=== PATIENT | female | born 1950 | race Caucasian/White ===

== ENCOUNTER 2019-05-10 16:42 | Inpatient (IN) | payer MEDICARE, SELFPAY ==
[2019-05-10] VITALS (14 sets, daily range): BP systolic 110–172; BP diastolic 86–140; PULSE 85–188; RESP 20–34; TEMP 36.6–37; O2SAT 88–100; BMI 42.0; BMI 41.7
--- NOTE | 2019-05-10 17:05 | EKG12_ITS ---
Test Reason : SOB Blood Pressure : / mmHG Vent. Rate : 197 BPM Atrial Rate : 174 BPM P-R Int : 000 ms QRS Dur : 088 ms QT Int : 236 ms P-R-T Axes : 000 028 153 degrees QTc Int : 427 ms Atrial fibrillation with rapid ventricular response Nonspecific ST and T wave abnormality Abnormal ECG Confirmed by CARI MCKEE, BILLY ([id number]), editorial assistant KRAIG MATTHEW ([id number]) on 05/12/2019 8:59:03 AM Referred By: EMILIANA Confirmed By:BILLY ALCALA MD
--- NOTE | 2019-05-10 17:17 | ED.VISSUMM ---
- ER Visit Summary Date of Service: 05/10/19 Chief Complaint: Shortness of breath History of Present Illness: The patient is a 68 F who presents with shortness of breath that has been getting worse over the past 3 weeks. Patient states she ran out of her medications at home approximately 3 weeks ago and has not seen her primary care physician to get these refilled. Patient does admit to some lower leg swelling that has been getting worse. Patient admits to a cough with some white sputum. Patient states her breathing is worse with exertion. Patient denies any fevers or chills. Patient denies any chest pain. Patient does admit to occasional palpitation. Physical Examination: Vital signs are stable except for mild tachypnea of 24. Patient is afebrile. Patient is in no acute distress. Oral mucosa is pink and moist. Neck is supple. Trachea is midline. There is no JVD noted. Heart was regular rate and rhythm. Lungs are clear and equal bilaterally. Abdomen is soft. Bowel sounds are normal. There is no tenderness. Extremities are intact. There is trace edema of the lower extremities bilaterally. Cranial nerves II through XII are intact. There are no focal motor or sensory deficits noted. Test Results: EKG shows atrial fibrillation with a rate of 197. There are no acute ST or T wave changes noted. CBC was normal. Basic metabolic profile shows slightly increased creatinine of 1.21. Troponin was 0.024. BNP with slightly elevated at 851. PA and lateral chest x-ray shows a left pleural effusion. Emergency Department Course and Treatment: Patient was given a dose of Cardizem here. Patient's heart rate improved into the 140s. Patient was still in atrial fibrillation. Patient was given a dose of labetalol here. Patient's heart rate improved into the 110s. Patient was still in atrial fibrillation. Patient's results were discussed with her. Case was discussed with the hospitalist. Patient will be admitted. Disposition: Admit to hospital Impression: 1. Atrial fibrillation with rapid ventricular response. 2 left pleural effusion This note was generated with [employer] dictation software. It may contain incorrect words, spelling, and punctuation that were not noted in review of the chart prior to signing ED Disposition - Plan for ED Patient: Disposition: Acute Care Hospital [facility] Diagnosis: Atrial fibrillation with rapid ventricular response, Pleural effusion, left Referrals: Mali Astudillo NP-Giuliano [Primary Care Provider] -
--- NOTE | 2019-05-10 17:30 | RAD_ITS ---
STUDY: X-RAY CHEST REASON FOR EXAM: Female, 68 years old. Shortness of breath and cough TECHNIQUE: PA and lateral views of the chest. COMPARISON: 02/02/2016 FINDINGS: EKG leads overlie the chest Lungs are expanded. Chronic interstitial changes noted in both lung mccollum. Right lung is clear. There is a large left pleural effusion with likely associated atelectasis or infiltrate. Normal size heart. Normal mediastinum and ebony. Normal visualized pulmonary arteries. There is atherosclerotic calcification of the aortic arch with tortuosity. There are diffuse degenerative changes of the visualized thoracic spine. There is degenerative osteoarthritis of the bilateral shoulders. There is no demonstrated abnormality of the visualized soft tissue structures of the upper abdomen. RAD/Chest PA and Lateral IMPRESSION: Large left pleural effusion with likely associated atelectasis, follow-up recommended to ensure resolution Electronically Signed: Boston Yu MD at 17:54 EDT , Service support ,
[2019-05-10 17:39] LABS: Absolute Lymphocyte Count 1.15 X10^3/uL (0.83-4.51); Absolute Neutrophil Count 8.7 X10^3/uL (2.0-7.7); Basophil# 0.09 X10^3/uL; Basophil% 0.8 % (0-1); Eosinophil# 0.04 X10^3/uL; Eosinophils% 0.4 % (0-5); Hemoglobin 14.4 g/dL (12.0-15.0); Lymphocyte # 1.15 X10^3/ul (4.0); Lymphocyte % 10.5 % (19-41); Mean Corp Hgb Conc 32.7 g/dL (32-36); Mean Corpuscular Hgb 28.5 pg (27.0-32.0); Mean Corpuscular Volume 87.1 fL (81-99); Mean Platelet Vol. 10.7 fl (6.2-12.0); Monocyte# 0.91 X10^3/uL; Monocyte% 8.3 % (0-10); NRBC Flagged by Analyzer 0 % (0-5); Neutrophil # 8.69 X10^3/uL (2.7-7.7); Neutrophil % 79.5 % (47-70); Platelet Count 267 K/mm3 (150-450); RBC Distribution Width CV 14.1 % (11.6-14.6); RBC Distribution Width SD 45.1 fl (35.1-43.9); Red Blood Count 5.05 M/mm3 (4.2-5.4); White Blood Count 10.9 K/mm3 (4.4-11.0)
[2019-05-10] MEDS: dilTIAZem 25 MG/5 ML Vial IV BOLUS (17:41)
[2019-05-10 17:59] LABS: Anion Gap 13 (5-15); BUN 16 mg/dL (7-18); BUN/Creat Ratio 13.2 RATIO (10-20); Calcium,Total 9.2 mg/dL (8.5-10.1); Chloride 105 mmol/L (98-107); Creatinine, Serum 1.21 mg/dL (0.55-1.02); EST Glomerular Filtration Rate 47 mL/min (>60); Est Glom Filt Rate - Afr Amer 57 mL/min (>60); Estimated Creatinine Clearance 37.32 ml/min; Glucose 139 mg/dL (74-106); Potassium 3.5 mmol/L (3.5-5.1); Sodium Level 141 mmol/L (136-145)
--- NOTE | 2019-05-10 20:11 | PCM.HP.STD ---
Problem List (1) Acute on chronic diastolic (congestive) heart failure Status: Acute (2) Atrial fibrillation with rapid ventricular response Status: Acute (3) Pleural effusion, left Status: Acute (4) Severe uncontrolled hypertension Status: Chronic (5) Obesity Status: Chronic Qualifiers: Obesity type: unspecified obesity type Serious obesity comorbidity presence: with serious comorbidity Body mass index: BMI 40.0-44.9 History of Present Illness Date of Admission: 05/10/19 Chief Complaint: Palpitation, shortness of breath - 3 weeks The patient is a 68 year old F past medical history of chronic diastolic CHF, hypertension who comes in with complaints of palpitations, shortness of breath ongoing for 3 weeks. Patient ran out of her medications 3 weeks ago and because she was feeling well she did not bother to go refill them. Denied any chest pain or dizziness. She admits to orthopnea, sleep sitting in a chair. Denies any PND, admits to bilateral leg swelling. Vitals signs in the ED show temperature of 97.8F, heart rate of 188, blood pressure 153/128, respiratory 28, SPO2 was 88% on room air. Admitting blood work showed WBC count of 10.9, hemoglobin 14.4, platelet count of 267, BMP was unremarkable, creatinine was at her baseline, BNPep was 851. Admitting chest x-ray showed large left pleural effusion with associated atelectasis. Past Medical History Past Medical History (Chronic Problems): Chronic Problems Obesity (Chronic) Severe uncontrolled hypertension (Chronic) Allergies Sulfa (Sulfonamide Antibiotics) Allergy (Verified 05/10/19 16:43) Unknown Home Medications: Ambulatory Orders Medication Instructions Recorded Aspirin [Aspirin, Baby] 81 mg PO DAILY@0800 #1 tab.chew 02/02/16 amlodipine 10 mg tablet 10 mg PO DAILY #30 tab 01/30/18 carvedilol 25 mg tablet 25 mg PO BID #60 tab 02/16/18 furosemide 40 mg tablet 40 mg PO DAILY #30 tab 02/16/18 pravastatin 20 mg tablet 20 mg PO QHS #30 tab 02/16/18 Valsartan 320 mg PO DAILY 05/10/19 Surgical History: no surgical history Psychiatric History: No pertinent psych hx [employer] History: No pertinent [employer] history Lives: Spouse/ Significant Other Smoking Status: Never smoker Tobacco Use: Non-smoker Alcohol: None Drugs: None - *Family History Maternal History Items: Cancer - gynecological Paternal History Items: Heart Disease Review of Systems Constitutional: Reports: Fatigue. Denies: Anorexia, Chills, Fever, Night Sweats, Malaise, Weakness, Weight Change Eyes: Denies: Blurred vision, Cataracts, Conjunctivae Inflammation, Pain, Redness, Vision Change HEENT: Denies: Difficulty Hearing, Difficulty Swallowing, Hard of Hearing, Head Aches, Hearing Changes, Nasal bleeding, Sinus Congestion, Sinus Drainage Cardiovascular: Reports: Edema, Orthopnea, Paroxysmal Noc. Dyspnea. Denies: Chest Pain, Claudication, Chest Pressure, Chest Tightness, Light Headedness, Palpitations, Syncope Respiratory: Reports: Shortness of Breath, Shortness of breath at rest, Shortness of breath upon exertion. Denies: Cough, Hemoptysis, Pleuritic Pain, Sputum production, Wheezing Gastrointestinal: Denies: Abdominal Pain, Constipation, Diarrhea, Hematemesis, Hematochezia, Nausea, Vomiting Genitourinary: Denies: Dysuria, Frequency, Incontinence, Nocturia Gynecological: Denies: Breast symptoms, Excessively long or heavy periods, Vaginal discharge Musculoskeletal: Denies: Joint Pain, Joint stiffness, Joint swelling, Joint Tenderness Skin: Denies: Pruritis, Rash, Wounds Neurological: Denies: Difficulty swallowing, Focal weakness, Numbness, Tingling Psychiatric: Denies: Anxiety, Depression, Homicidal Ideations, Suicidal Ideations Hematologic/ Lymphatic: Denies: Adenopathy, Anemia, Easy Bruising, Easy Bleeding VTE Information - Inpt Only VTE Present on Admission: No VTE Pharm Prophylaxis ordered?: Yes Patient Problems: Active and Suspected Problems Atrial fibrillation with rapid ventricular response (Acute) Pleural effusion, left (Acute) Acute on chronic diastolic (congestive) heart failure (Acute) - Physical Exam General: Alert, Oriented x3, Cooperative, No apparent distress, - - on 2 L oxygen HEENT: Atraumatic, PERRLA, EOMI, Normocephalic Oral: Dry Mucosa Neck: Supple Lungs: Clear to auscultation, Normal air movement Cardiovascular: Regular rate, Normal S1, Normal S2, Irregular Rate, Tachycardic Abdomen: Bowel Sounds Present, Soft, Non Tender, Non-Distended, No Hepato-splenomegaly, Obese Extremities: Edema - bilateral pedal edema +2 Skin: No rashes Musculoskeletal: No Tenderness to Palpation of Joints or Extremities Lymphatic: No Cervical, Supraclavicular, or Inguinal Adenopathy Neurological: Cranial nerves II-XII grossly intact, Neuro grossly intact Psych/Mental Status: Normal Affect, Appropriate Vital Signs Temp Pulse Resp BP Pulse Ox 97.8 F 117 H 23 H 131/97 H 95 05/10/19 16:43 05/10/19 19:16 05/10/19 19:16 05/10/19 19:16 05/10/19 19:16 Oxygen Flow Rate (L/min) 94 Oxygen Delivery Method Room Air Weight: 107.592 kg Body Mass Index (BMI) 42.0 Laboratory Tests Past 24 Hrs 05/10/19 05/10/19 05/10/19 17:20 17:20 17:20 WBC 10.9 RBC 5.05 Hgb 14.4 Hct 44.0 MCV 87.1 MCH 28.5 MCHC 32.7 RDW Std Deviation 45.1 H RDW Coeff of Renate 14.1 Plt Count 267 MPV 10.7 Immature Gran % (Auto) 0.500 Neut % (Auto) 79.5 H Lymph % (Auto) 10.5 L [place] % (Auto) 8.3 Eos % (Auto) 0.4 Baso % (Auto) 0.8 Absolute Neuts (auto) 8.7 H Absolute Lymphs (auto) 1.15 Nucleated RBC % 0 Sodium 141 Potassium 3.5 Chloride 105 Carbon Dioxide 23.0 Anion Gap 13 BUN 16 Creatinine 1.21 H Estim Creat Clear Calc 37.32 Est GFR (MDRD) Af Amer 57 L Est GFR (MDRD) Non-Af 47 L BUN/Creatinine Ratio 13.2 Glucose 139 H Calcium 9.2 Troponin I 0.024 B-Natriuretic Peptide 851.0 H Assessment/Plan All Active Problems Atrial fibrillation with rapid ventricular response (Acute) Pleural effusion, left (Acute) Acute on chronic diastolic (congestive) heart failure (Acute) Congestive heart failure with LV diastolic dysfunction, NYHA class 2 (Acute) Ventricular tachycardia (Acute) Shortness of breath (Acute) 68 year old F with past medical history of chronic diastolic CHF, hypertension who comes in with complaints of palpitations, shortness of breath ongoing for 3 weeks. 1. A. fib with RVR secondary to medication noncompliance, CHADS-VASC score 4 Patient was out of her medications 3 weeks ago Received Cardizem bolus in the ED Plan: Admit to PCU, monitor on telemetry, continue on Cardizem drip, therapeutic Lovenox, resume home carvedilol 2D echo, will check magnesium level 2. Uncontrolled hypertension secondary to medication noncompliance Will resume home medications, continue to monitor vitals 3. Acute on chronic diastolic CHF, last 2D echo in 2015 during cardiac cath showed EF of 40% We will start on IV Lasix, strict CHF protocol, repeat 2D echo 4. Acute respiratory insufficiency secondary to acute on chronic diastolic CHF/large left pleural effusion We will continue on IV Lasix, repeat chest x-ray in a.m., encourage use of incentive spirometer If pleural effusion continues to be persistent, consider diagnostic and therapeutic thoracocentesis 5. CKD stage III, creatinine appears to be at her baseline, will continue to follow whilst on diuretics 6. Morbid obesity, BMI 42, lifestyle modification recommended 7. DVT PPx- On therapeutic Lovenox Code Visit Inpatient E&M: 15885 Init Hosp L3
--- NOTE | 2019-05-10 21:32 | ECHOD_ITS ---
Reason For Study: Afib/Flutter Procedure This was a 2D Doppler, Color Flow transthoracic echocardiogram. The study was technically difficult. Exam performed portable in patient room. Left Ventricle Normal LV size. Severe segmental systolic dysfunction (see wall motion). The estimated ejection fraction is 15 %. Unable to assess diastolic dysfunction due to arrhythmia. Infero-Basal: Severely Hypokinetic. Basal inferoseptal: Severely Hypokinetic. Basal anteroseptal: Hypokinetic. Mid- Anterior : Severely Hypokinetic. Mid-Lateral : Severely Hypokinetic. Mid-Posterior: Severely Hypokinetic. Mid-Inferior: Severely Hypokinetic. Mid-inferoseptal : Akinetic. Mid-anteroseptal : Akinetic. Anterior [place] : Not visualized. Inferior [place] : Not visualized. Lateral [place] : Akinetic. Septal [place] : Akinetic. Right Ventricle Mildly dilated right ventricle. Mild global right ventricular systolic dysfunction. Atria The left atrium is severely enlarged. The right atrium is severely enlarged. No doppler evidence for ASD. Mitral Valve There is no mitral annular calcification. Mild papillary muscle dysfunction of the mitral valve. Mild (1+) mitral valve insufficiency. Tricuspid Valve Normal tricuspid valve. Moderate (2+) eccentric tricuspid valve insufficiency. Right ventricular systolic pressure estimated to be 35 mmHg. Aortic Valve Trisinus/trileaflet aortic valve. Normal aortic valve. Pulmonic Valve The pulmonic valve is not well visualized. Trivial pulmonic valve insufficiency. Great Vessels Normal sized aortic root. Pericardium/Pleural No pericardial effusion. Echo lucency compatible with a pleural effusion. MMode/2D Measurements & Calculations LVIDd: 5.0 cm IVSd: 1.5 cm LVOT diam: 2.0 cm LVIDs: 4.0 cm LVPWd: 1.1 cm LVOT area: 3.3 cm2 RVDd: 4.1 cm FS: 20.4 % Ao root diam: 3.8 cm LAV(MOD-sp4): 130.5 ml LA A4 area: 32.8 cm2 LA dimension: 5.2 cm RA A4 area: 23.6 cm2 Doppler Measurements & Calculations MV E max zainab: 104.4 cm/sec Ao V2 max: 125.6 cm/sec LV V1 max: 95.2 cm/sec Ao max P.4 mmHg LV V1 max P.8 mmHg TARIQ(V,D): 2.5 cm2 MR max zainab: 403.8 cm/sec PA V2 max: 90.5 cm/sec TR max zainab: 257.3 cm/sec MR max P.2 mmHg TR max P.5 mmHg MR mean zainab: 310.7 cm/sec MR mean P.5 mmHg MR VTI: 127.4 cm Interpretation Summary The study was technically difficult. Severe segmental systolic dysfunction (see wall motion). The estimated ejection fraction is 15 %. Mildly dilated right ventricle. Mild global right ventricular systolic dysfunction. The left atrium is severely enlarged. The right atrium is severely enlarged. Mild papillary muscle dysfunction of the mitral valve. Mild (1+) mitral valve insufficiency. Moderate (2+) eccentric tricuspid valve insufficiency. Trivial pulmonic valve insufficiency. Echo lucency compatible with a pleural effusion. Right ventricular systolic pressure estimated to be 35 mmHg. Unable to assess diastolic dysfunction due to arrhythmia. Ordering Physician: Elaine Sarmiento Referring Physician: Mali Astudillo Performed By: Boris Valerio RCS
[2019-05-10] MEDS: Furosemide 40 MG/4 ML Vial IV (22:51)
[2019-05-10] MEDS: Carvedilol 25 MG Tablet PO (22:51)
[2019-05-10] MEDS: Heparin Injection (Vial) 5,000 UNIT/ML VIAL 5000 UNIT SC (22:51)
[2019-05-10] MEDS: Pravastatin 20 MG Tablet PO (22:51)
[2019-05-10 23:11] LABS: Bedside Glucose 137 mg/dL (70-110)
[2019-05-11] VITALS (34 sets, daily range): BP systolic 83–158; BP diastolic 64–130; PULSE 70–103; RESP 16–24; TEMP 36.6–37.1; O2SAT 93–98
[2019-05-11] MEDS: Heparin Injection (Vial) 5,000 UNIT/ML VIAL 5000 UNIT SC ×3 (06:07→22:19)
[2019-05-11 06:15] LABS: Absolute Lymphocyte Count 1.42 X10^3/uL (0.83-4.51); Absolute Neutrophil Count 6.5 X10^3/uL (2.0-7.7); Basophil# 0.05 X10^3/uL; Basophil% 0.6 % (0-1); Eosinophil# 0.04 X10^3/uL; Eosinophils% 0.5 % (0-5); Hemoglobin 11.6 g/dL (12.0-15.0); Lymphocyte # 1.42 X10^3/ul (4.0); Mean Corp Hgb Conc 31.4 g/dL (32-36); Mean Corpuscular Hgb 27.2 pg (27.0-32.0); Mean Corpuscular Volume 86.9 fL (81-99); Mean Platelet Vol. 11.2 fl (6.2-12.0); Monocyte# 0.83 X10^3/uL; Monocyte% 9.4 % (0-10); NRBC Flagged by Analyzer 0 % (0-5); Neutrophil # 6.49 X10^3/uL (2.7-7.7); Platelet Count 180 K/mm3 (150-450); RBC Distribution Width CV 14.2 % (11.6-14.6); Red Blood Count 4.26 M/mm3 (4.2-5.4); White Blood Count 8.9 K/mm3 (4.4-11.0)
[2019-05-11 06:36] LABS: Bedside Glucose 98 mg/dL (70-110)
[2019-05-11 06:45] LABS: ALB/GLOB Ratio 0.7 RATIO (0.9-2.4); AST(SGOT) 20 U/L (15-37); Alanine Aminotransfer ALT/SGPT 21 U/L (13-56); Albumin, Serum 2.5 g/dL (3.2-5.0); Alkaline Phosphatase 75 U/L (45-117); Anion Gap 8 (5-15); BUN 16 mg/dL (7-18); BUN/Creat Ratio 15.2 RATIO (10-20); Calcium,Total 8.3 mg/dL (8.5-10.1); Chloride 108 mmol/L (98-107); Creatinine, Serum 1.05 mg/dL (0.55-1.02); EST Glomerular Filtration Rate 55 mL/min (>60); Est Glom Filt Rate - Afr Amer 67 mL/min (>60); Estimated Creatinine Clearance 43.01 ml/min; Globulin 3.8 g/dL (2.2-4.2); Glucose 106 mg/dL (74-106); Potassium 3.5 mmol/L (3.5-5.1); Protein, Total 6.3 g/dL (6.4-8.2); Sodium Level 140 mmol/L (136-145)
--- NOTE | 2019-05-11 08:25 | RAD_ITS ---
STUDY: X-RAY CHEST REASON FOR EXAM: Female, 68 years old. Pleural effusion. TECHNIQUE: AP and lateral views of the chest. COMPARISON: Comparison is made with prior study dated May 10, 2019. FINDINGS: EKG electrodes are seen. Stable pleural parenchymal changes at the left lung base suggestive of a effusion with underlying infiltration and/or atelectasis. The right lung is clear. Normal size heart. Normal mediastinum and ebony. Normal visualized pulmonary arteries. There is atherosclerotic calcification of the aortic arch with tortuosity. There is demineralization of the osseous structures. Normal visualized ribs, clavicles, and shoulders. There is no demonstrated abnormality of the visualized soft tissue structures of the upper abdomen. RAD/Chest PA and Lateral IMPRESSION: Persistent pleural parenchymal changes at the left lung base. Electronically Signed: Tomer Pierce, at 14:24 EDT , Service support ,
[2019-05-11] MEDS: Aspirin 81 MG TAB.CHEW PO (10:05)
[2019-05-11] MEDS: Carvedilol 25 MG Tablet PO ×2 (10:05→22:19)
[2019-05-11] MEDS: Furosemide 40 MG/4 ML Vial IV ×2 (10:05→17:34)
[2019-05-11] MEDS: amLODIPine 10 MG Tablet PO (11:31)
[2019-05-11] MEDS: Losartan Potassium 100 MG Tablet PO (11:31)
--- NOTE | 2019-05-11 12:01 | CASEMGMT ---
LUIS ARROYO assessment: Face to Face with patient for initial transition planning/care coordination assessment. LUIS ARROYO introduced self and role at [facility], pt voices understanding and consents to assessment at this time. Pt is sitting up in bed in no distress at this time. Pt is A/Ox4 at this time and answers all questions appropriately at this time. Care providers, pharmacy, and demographics verified at this time. Pt states that the pharmacy quit refilling her meds and she states that she didn't realize that she needed to f/u with her PCP to keep getting her meds prescribed. 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 PCP: Mali Astudillo Specialists: tony Edwards [facility]acy: [facility] Insurance: Nanalysis Prescription Benefit: Nanalysis Living Will/HPOA: Pt states does not have LW/HPOA and declines info at this time. LNOK: Pancho Zamarripa, Living Arrangements: Pt states lives with on main level of 2 story home with a couple steps in and states no concerns at home at this time. Pt is independent with ADL's. Transportation: Pt states drives self and states no transportation concerns at this time. DME/HHC: Pt states has grab bars and states no need for any further DME at this time. Pt states no hx of HHC or SNF in the past. Pt states no concerns with going home at time of discharge. Pt states is retired. Pt states does not smoke or drink ETOH. Pt states no further concerns/needs at this time. CM to follow for any further questions/concerns/needs at this time. Advised pt to ask for CM if any further questions/concerns/needs arise, voices understanding. Pt Goal: Home Plan[place] LUIS ARROYO
--- NOTE | 2019-05-11 12:31 | PN_ITS ---
Patient Problems: Active and Suspected Problems Atrial fibrillation with rapid ventricular response (Acute) Pleural effusion, left (Acute) Acute on chronic diastolic (congestive) heart failure (Acute) Subjective: Feeling better. Openly admits that she simply did not get refills on her medications. Vitals/I&O's: Vital Signs Temp Pulse Resp BP Pulse Ox 36.7 C 85 16 125/111 H 95 05/11/19 09:00 05/11/19 12:00 05/11/19 11:00 05/11/19 11:00 05/11/19 11:00 Oxygen Flow Rate (L/min) 2 Oxygen Delivery Method Nasal Cannula Weight: 107.3 kg Body Mass Index (BMI) 41.7 Intake and Output for Last 24 Hours 05/09/19 05/10/19 05/11/19 23:59 23:59 23:59 Intake Total 487.51 / 490.01 307.50 / 307.50 Balance 487.51 / 490.01 307.50 / 307.50 General: Alert, No apparent distress HEENT: Atraumatic, Normocephalic Oral: Moist Mucosa, No Gingival or Mucosal Lesions/ Ulcerations Neck: No Nodes, Thyroid Normal Size and Texture Lungs: - - diminished LLL Cardiovascular: Regular rate, Regular Rhythm, Normal S1, Normal S2 Abdomen: Bowel Sounds Present, Soft, Non Tender, Non-Distended Extremities: No edema, No Calf Tenderness Skin: No rashes, No breakdown Psych/Mental Status: Normal Affect, Appropriate Laboratory Results 05/10/19 17:20: WBC 10.9, RBC 5.05, Hgb 14.4, Hct 44.0, MCV 87.1, MCH 28.5, MCHC 32.7, RDW Std Deviation 45.1 H, RDW Coeff of Renate 14.1, Plt Count 267, MPV 10.7, Immature Gran % (Auto) 0.500, Neut % (Auto) 79.5 H, Lymph % (Auto) 10.5 L, [place] % (Auto) 8.3, Eos % (Auto) 0.4, Baso % (Auto) 0.8, Absolute Neuts (auto) 8.7 H, Absolute Lymphs (auto) 1.15, Nucleated RBC % 0 05/10/19 17:20: Sodium 141, Potassium 3.5, Chloride 105, Carbon Dioxide 23.0, Anion Gap 13, BUN 16, Creatinine 1.21 H, Estim Creat Clear Calc 37.32, Est GFR (MDRD) Af Amer 57 L, Est GFR (MDRD) Non-Af 47 L, BUN/Creatinine Ratio 13.2, Glucose 139 H, Calcium 9.2, Troponin I 0.024 05/10/19 17:20: B-Natriuretic Peptide 851.0 H 05/10/19 17:20: Magnesium 2.0 05/10/19 22:27: Troponin I 0.043 05/10/19 22:55: POC Glucose 137 H 05/11/19 00:35: Troponin I 0.053 H 05/11/19 05:25: WBC 8.9, RBC 4.26, Hgb 11.6 L, Hct 37.0, MCV 86.9, MCH 27.2, MCHC 31.4 L, RDW Std Deviation 45.0 H, RDW Coeff of Renate 14.2, Plt Count 180, MPV 11.2, Immature Gran % (Auto) 0.500, Neut % (Auto) 73.0 H, Lymph % (Auto) 16.0 L, [place] % (Auto) 9.4, Eos % (Auto) 0.5, Baso % (Auto) 0.6, Absolute Neuts (auto) 6.5, Absolute Lymphs (auto) 1.42, Nucleated RBC % 0 05/11/19 05:25: Sodium 140, Potassium 3.5, Chloride 108 H, Carbon Dioxide 24.0, Anion Gap 8, BUN 16, Creatinine 1.05 H, Estim Creat Clear Calc 43.01, Est GFR (MDRD) Af Amer 67, Est GFR (MDRD) Non-Af 55 L, BUN/Creatinine Ratio 15.2, Glucose 106, Calcium 8.3 L, Total Bilirubin 0.70, AST 20, ALT 21, Alkaline Phosphatase 75, Troponin I 0.037, Total Protein 6.3 L, Albumin 2.5 L, Globulin 3.8, Albumin/Globulin Ratio 0.7 L 05/11/19 06:06: POC Glucose 98 Current Medications Acetaminophen (Tylenol) 650 mg PO Q6H PRN PRN PRN Reason: Pain Score 1-3/Temp > 100.7 F Amlodipine Besylate (Norvasc) 10 mg PO DAILY [facility] Last Admin: 05/11/19 11:31 Dose: 10 mg Documented by: Aspirin (Aspirin, Baby) 81 mg PO DAILY@0800 [facility] Last Admin: 05/11/19 10:05 Dose: 81 mg Documented by: Carvedilol (Coreg) 25 mg PO BID [facility] Last Admin: 05/11/19 10:05 Dose: 25 mg Documented by: Dextrose (D50w Syringe) 0 gm IV X1 PRN; Protocol PRN Reason: Hypoglycemia Furosemide (Lasix) 40 mg IV BID@1000,1800 [facility] Last Admin: 05/11/19 10:05 Dose: 40 mg Documented by: Glucagon () 1 mg IM .X1 PRN PRN Reason: Hypoglycemia Heparin Sodium (Porcine) (Heparin Na) 5,000 unit SC Q8 [facility] Last Admin: 05/11/19 06:07 Dose: 5,000 unit Documented by: Diltiazem HCl 125 mg/ Dextrose 125 mls @ 5 mls/hr IV .Q25H [facility]; Protocol Last Titration: 05/11/19 11:00 Dose: 5 mg/hr, 5 mls/hr Documented by: Sodium Chloride () 250 mls @ 15 mls/hr IV .[id number] PRN PRN Reason: SALINE FLUSH Losartan Potassium (Cozaar) 100 mg PO DAILY [facility] Last Admin: 05/11/19 11:31 Dose: 100 mg Documented by: Nitroglycerin (Nitrostat) 0.4 mg SUBLINGUAL Q5M PRN PRN Reason: CARDIAC/CHEST PAIN Nutritional Formula (Lactose Free) (Ensure Enlive) 120 ml PO 4X/DAY [facility] Last Admin: 05/11/19 10:05 Dose: 120 ml Documented by: Ondansetron HCl (Zofran) 4 mg IV Q8H PRN PRN PRN Reason: NAUSEA/VOMITING Pravastatin Sodium (Pravachol) 20 mg PO QHS [facility] Last Admin: 05/10/19 22:51 Dose: 20 mg Documented by: Sodium Chloride () 5 - 15 ml IV UD PRN PRN Reason: SALINE FLUSH STROKE Vital Signs/Narrative: Vital Signs Temp Pulse Resp BP Pulse Ox 05/11/19 12:00 85 05/11/19 11:00 78 16 125/111 H 95 05/11/19 10:00 85 24 H 103/88 H 96 10/15/19 09:00 36.7 C 95 19 H 107/89 H 97 Medical Necessity - Tobacco Use Smoking Status: Never smoker Tobacco Use: Non-smoker Assessment/Plan All Active Problems Atrial fibrillation with rapid ventricular response (Acute) Pleural effusion, left (Acute) Acute on chronic diastolic (congestive) heart failure (Acute) Congestive heart failure with LV diastolic dysfunction, NYHA class 2 (Acute) Ventricular tachycardia (Acute) Shortness of breath (Acute) 1. Afib w RVR * currently rate-controlled * dc dilt gtt * continue carvedilol 25 BID * follow up echo. * [id number] score of 4, will need to initiate OACs, but will await results of echo. 2. Acute CHF exacerbation * unclear type * continue IV furosemide * on ARB 3. Pleural effusion: * 2/2 above * diurese 4. VTE prophylaxis: SQ heparin. Code Visit Inpatient E&M: 54035 Subs Hosp L2
[2019-05-11] MEDS: Pravastatin 20 MG Tablet PO (22:19)
[2019-05-12] VITALS (18 sets, daily range): BP systolic 89–137; BP diastolic 55–92; PULSE 72–131; RESP 16–18; TEMP 36.6–37.2; O2SAT 92–96
[2019-05-12] MEDS: Heparin Injection (Vial) 5,000 UNIT/ML VIAL 5000 UNIT SC (06:01)
[2019-05-12] MEDS: Aspirin 81 MG TAB.CHEW PO (08:12)
[2019-05-12] MEDS: 0.9% NaCl Peripheral Flush Adult/Peds IV (09:39)
[2019-05-12] MEDS: Losartan Potassium 100 MG Tablet PO (09:39)
[2019-05-12] MEDS: Furosemide 40 MG/4 ML Vial IV ×2 (09:39→21:10)
[2019-05-12] MEDS: Carvedilol 25 MG Tablet PO ×2 (09:39→15:22)
--- NOTE | 2019-05-12 10:43 | PCM.CONS.C ---
<Annika Cazares M - Last Filed: 05/12/19 11:25> Problem List (1) Atrial fibrillation with rapid ventricular response Status: Acute (2) Pleural effusion, left Status: Acute (3) Acute on chronic diastolic (congestive) heart failure Status: Acute (4) Severe uncontrolled hypertension Status: Chronic (5) Shortness of breath Status: Acute Reason for Consult Date of Consultation: 05/12/19 History of Present Illness: The patient is a 68 year old F that presented to the emergency room on May 10, 2019 for palpitation and shortness of breath that have been ongoing over the last 3 weeks. She was admitted for uncontrolled hypertension and atrial fibrillation with RVR, acute on chronic congestive heart failure and left pleural effusion. She does have a history of controlled hypertension, hypertensive cardiomyopathy. During her hospital stay in 2015 she was noted to have ventricular tachycardia. EF was noted to be 35 to 40%. She did have a heart catheterization at that time which demonstrated minimal obstructive coronary artery disease of the diagonal branch and mid right coronary artery. She was noted to have moderate left ventricular dysfunction with an estimated ejection fraction of 40%. She was noted to have severely dilated elevated left ventricular end-diastolic pressure and severe systemic hypertension. She was started on IV Cardizem and IV Lasix. Her IV Cardizem has since been discontinued. Her home medications have been resumed. Her troponins have trended to 0.024, 0.043, 0.053, 0.037. Her ejection fraction on her echocardiogram was noted to be 15%. BNP on admission was 851. Patient states that approximately 3 weeks ago she ran out of all of her medications. She states that around this time is when her symptoms started where she noted palpitation and increasing shortness of breath. She states that previous to that she was going to [place] approximately twice a week. She however has not been there in the last month for the symptoms. She did not have orthopnea but did have increased shortness of breath. She noted shortness of breath with minimal activity. She also noted increasing lower extremity edema. She did not feel any bloating. She does not have any nausea vomiting. She did not note any blood in her stools or urine. She is aware of her irregular heartbeat. She states that she feels significantly better today than what she did and admission 2 days ago. She has not had any chest pain. Past Medical History Allergies/Adverse Reactions: Allergies Sulfa (Sulfonamide Antibiotics) Allergy (Verified 05/10/19 16:43) Unknown Home Medications: Ambulatory Orders Medication Instructions Recorded Aspirin [Aspirin, Baby] 81 mg PO DAILY@0800 #1 tab.chew 02/02/16 amlodipine 10 mg tablet 10 mg PO DAILY #30 tab 01/30/18 carvedilol 25 mg tablet 25 mg PO BID #60 tab 02/16/18 furosemide 40 mg tablet 40 mg PO DAILY #30 tab 02/16/18 pravastatin 20 mg tablet 20 mg PO QHS #30 tab 02/16/18 Valsartan 320 mg PO DAILY 05/10/19 Past Medical History (Chronic Problems): Chronic Problems Obesity (Chronic) Severe uncontrolled hypertension (Chronic) Surgical History: no surgical history Psychiatric History: No pertinent psych hx DIRECTOR OF TEACHING AND LEARNING History: No pertinent DIRECTOR OF TEACHING AND LEARNING history - *Family History Maternal History Items: Cancer - gynecological Paternal History Items: Heart Disease Lives: Spouse/ Significant Other Smoking Status: Never smoker Tobacco Use: Non-smoker Alcohol: None Drugs: None Review of Systems - Review of Systems General: Denies: Fever, Fatigue, Night Sweats HEENT: Denies: Blurred Vision Cardiovascular: Reports: Shortness of Breath, Shortness of Breath with Exertion, Peripheral Edema, Palpitations. Denies: Chest Discomfort, Chest Discomfort at Rest, Chest Discomfort with Exertion, Chest Pressure, Chest Tightness, Chest Heaviness, Shortness of Breath at Rest, Orthopnea, Lightheadedness, Dizziness, Near Syncope, Claudication Respiratory: Reports: Cough, Shortness of Breath Gastrointestinal: Denies: Indigestion, Heart Burn, Nausea, Melena Genitourinary: Denies: Hematuria Neurological: Denies: Dizziness Objective: Vital Signs Temp Pulse Resp BP Pulse Ox 98.6 F 95 18 104/72 94 05/12/19 09:26 05/12/19 09:26 05/12/19 09:26 05/12/19 09:26 05/12/19 09:26 Oxygen Flow Rate (L/min) 1 Oxygen Delivery Method Room Air Weight: 234 lb 9.149 oz Body Mass Index (BMI) 41.7 Intake and Output for Last 24 Hours 05/10/19 05/11/19 05/12/19 23:59 23:59 23:59 Intake Total 487.51 / 490.01 1532.50 / 1532.50 100 / 100 Output Total 750 / 750 Balance 487.51 / 490.01 782.50 / 782.50 100 / 100 General: Awake, Alert, Oriented x 3 HEENT: PERRL, EOMI, Sclera Non Icteric Oral: Moist Mucosa Neck: Supple, No JVD Lungs: Clear to auscultation, Diminished Left Base Cardiovascular: Irregular Rhythm, Normal S1, Normal S2, No Murmurs, No Rubs, No Gallops Abdomen: Bowel Sounds Present, Soft, Non Tender Extremities: Trace LLE Edema Neurological: No Focal Motor or Sensory Deficit, CN II-XII Intact Psych/Mental Status: Appropriate, Normal Affect Rhythm: EKG: ECHO: Echocardiogram demonstrated severe segmental systolic dysfunction with an estimated ejection fraction of 15%. Mild dilated RV, mild global right ventricular systolic dysfunction. Left atrium severely enlarged, right atrium severely enlarged, mild mitral insufficiency, moderate tricuspid insufficiency, echolucency compatible with pleural effusion, RVSP 35 mmHg. Unable to assess diastolic dysfunction due to arrhythmia. Stress Test: Cardiac Cath: PCI: CT Surgery: Holter monitor: EPS: PPM: CXR: On May 11 demonstrated persistent pleural parenchymal changes at left lung base. Chest CT Scan: Assessment/Plan 1. Atrial fibrillation with RVR: Patient is currently on Coreg at 25 mg twice a day. For now we will continue with this medication. Her heart rate does appear better controlled. May consider adding additional rate limiting medication if heart rate starts to elevate now that her diltiazem has been discontinued. She does have a Skip score of 4. She is currently on heparin. Would like to consider patient for anticoagulation ideally with a factor X a inhibitor. 2. Uncontrolled hypertension: Patient's blood pressure seems to be better controlled now that she is on her home medications. For now we will continue to monitor. 3. Acute on chronic congestive heart failure: Patient's BNP was elevated. She does have a left pleural effusion. She is currently on IV Lasix, As her ejection fraction is now 15% would like to reevaluate this with a heart catheterization. Based upon these findings will adjust treatment and medications. 4. Nonischemic cardiomyopathy: As mentioned above would like to proceed with a diagnostic heart catheterization to further assess. Her ejection fraction in 2016 was 40 to 65%. It is 15% today. This could be related to her tachycardia but would like to reevaluate for any ischemic component that could be contributing to worsening heart function. Medication adjustments will be made based upon findings. This plan has been discussed with Dr. Edwards, he agrees with plan of care. <Rony Edwards - Last Filed: 05/12/19 12:58> Problem List (1) Atrial fibrillation with rapid ventricular response Status: Acute (2) Acute on chronic diastolic (congestive) heart failure Status: Acute (3) Severe uncontrolled hypertension Status: Chronic (4) Congestive heart failure with LV diastolic dysfunction, NYHA class 2 Status: Acute (5) Shortness of breath Status: Acute Reason for Consult History of Present Illness: The patient is a 68 year old F who was seen and examined in conjunction with Annika Cazares. Patient has a previous history of atrial fibrillation requiring DC cardioversion several years ago, and apparently ran out of her medications about 2 weeks ago. Despite this, she was trying to do well by her heart by continue to exercise but developed worsening shortness of breath and dyspnea on exertion. She is unaware of her atrial fibrillation. She was admitted for congestive heart failure, rapid atrial fibrillation, and medical noncompliance. Her peak troponin was 0.053. Patient was given baby aspirin and loaded with Brilinta in anticipation that she may require intervention. She underwent a left her catheterization on 05/12/2019 by myself, which demonstrated minimal nonobstructive coronary disease of her mid LAD otherwise normal coronaries. Her LVEF was about 15 to 20%. [] Objective: Vital Signs Temp Pulse Resp BP Pulse Ox 98.6 F 95 18 104/72 94 05/12/19 09:26 05/12/19 09:26 05/12/19 09:26 05/12/19 09:26 05/12/19 09:26 Oxygen Flow Rate (L/min) 1 Oxygen Delivery Method Room Air Weight: 234 lb 9.149 oz Body Mass Index (BMI) 41.7 Intake and Output for Last 24 Hours 05/10/19 05/11/19 05/12/19 23:59 23:59 23:59 Intake Total 487.51 / 490.01 1532.50 / 1532.50 700 / 700 Output Total 750 / 750 Balance 487.51 / 490.01 782.50 / 782.50 700 / 700 Rhythm: EKG: ECHO: Stress Test: Cardiac Cath: PCI: CT Surgery: Holter monitor: EPS: PPM: CXR: Chest CT Scan: Assessment/Plan 1. Atrial fibrillation: Patient presents with rapid atrial fibrillation superimposed on acute on chronic congestive heart failure, with minimal nonobstructive coronary disease discovered by repeat catheterization. Her LV function has been confirmed and is 15 to 20%. Recommend discontinuation of her Brilinta, discontinuation of her amlodipine, continuing her Coreg, Lasix, Cozaar and initiating anti-coagulation therapy with either Eliquis or Xarelto in 3 days time allowing for groin to heal. She will require 3 weeks of anticoagulation followed by DC cardioversion. If this is unsuccessful we will add amiodarone repeat cardioversion 1 months time. When she has been converted to normal sinus rhythm we will repeat her echocardiogram 3 months after that to assess if her LV function has improved. The patient will most likely require lifelong anticoagulation given the fact that she is unable to detect her atrial fibrillation. She will follow-up with Dr. Edwards going forward. Discussed with Dr. Mckeon. Thank you very much for the opportunity to participate in the cardiac care of your patient. Consultation time took place between 12 PM and 12:30 PM. Code Visit Inpatient E&M: 44955 Init Hosp L2
--- NOTE | 2019-05-12 11:38 | CASEMGMT ---
According to the [employer] website, the following are in-network tertiary facilities: [facility], [facility], [facility], and . William SMITH CM
--- NOTE | 2019-05-12 12:50 | CL.D_ITS ---
Patient Name: JOSSELINE SALMON Study Date: 05/12/2019 Performing: Rony Edwards MD Ht: 62.99 inches 160 cm : 1950 Wt: 233.69 lbs 106 kg Age: 68 Gender: female BSA: 2.07 PROCEDURE(S) PERFORMED AN89-JAG/COR/LV CLINICAL PROFILE AND INDICATIONS Indications: Stable Known CAD, Cardiac Arrythmia, LV Dysfunction Heart Failure: NYHA Class: 2, Newly Diagnosed: Yes, Heart Failure Type: Systolic Stress/Imaging Stress/Image Study Performed: No Angina Classification Anginal Classification w/in 2 Weeks: CCS II CAD Presentations: Unstable angina. Comorbidities/Risk Factors: Hypertension Dyslipidemia Prior CHF CONCLUSIONS Global LV systolic dysfunction- Severe LVEF: by LV gram 15-20 % Depressed Left Ventricular systolic function - Severe Normal Left Ventricular End Diastolic Pressure Non obstructive coronary arteries RECOMMENDATIONS Management as per referring Art Professor D/c brilinta, continue baby asa, start eliqis in 3 days for afib. Restart meds as pt ran out of meds 2 weeks ago. DCCV in 3-4 weeks. Manual sheath removal. f/u with Dr Edwards DESCRIPTION OF PROCEDURE The patient arrived to the procedure lab. The risks and benefits of the procedure as well as a full d escription of our services here and current unavailability of surgical backup were fully explained to the patient and/or their significant other prior to the catheterization. The Timeout was completed, verifying the correct patient and procedure. The patient's procedural site was prepped and draped in the usual fashion. Local anesthetic was given subcutaneously to right groin region with Lidocaine 2%. Using a modified Seldinger technique, arterial access was obtained via the right femoral artery, a 4 Fr sheath was inserted Left Coronary Artery selective angiography was performed in multiple views us ing a 4 Fr. JL5 catheter. Right Coronary Artery selective angiography was then performed in multiple views using a 4 Fr. 3DRC catheter. Left Ventriculography was performed in BULLOCK projection using a 4 Fr . Pigtail catheter. LV to AO pullback pressures were then recorded.The arterial sheath was pulled and manual compression applied until hemostasis is achieved. CORONARY ANGIOGRAPHY DOMINANCE: Right Dominant LEFT HEART ASSESSMENT Left Ventricular Ejection Fraction: by LV Gram 15-20 % Global Hypokinesis - Severe Depressed Left Ventricular systolic function LVEDP: 10 mmHg Normal Left Ventricular End Diastolic Pressure LEFT MAIN: Angiographically normal LEFT ANTERIOR DESCENDING ARTERY: MID LAD: Mild luminal irregularities less than 30% CIRCUMFLEX ARTERY: Angiographically normal RIGHT CORONARY ARTERY: Angiographically normal COMPLICATIONS No Complications PROCEDURE MEDICATIONS Versed 1 mg IV Oxygen: 2 L/min via nasal cannula Brilinta 180 mg PO @ 05/12/2019 12:05:57 Nitro 200 mcg IC 05/12/2019 12:31:37 SUMMARY OF HEMODYNAMIC DATA Time AIR REST ECG 12:11:33 AO 105/78 (88) SA 12:28:53 LV 103/-10, 1 12:36:32 LV 98/-10, 10 12:36:38 LVp 109/-15, -4 12:36:44 AOp 97/68 (78) 12:36:49 Signed By Rony Edwards MD On 05/12/2019 12:49:21 Rony Edwards MD
--- NOTE | 2019-05-12 15:39 | PCM.PN.HOSP ---
Patient Problems: Active and Suspected Problems (Last Updated 05/12/19 @ 13:06 by Linda Recinos) Non-ischemic cardiomyopathy (Acute) Atrial fibrillation with rapid ventricular response (Acute 05/10/19) Pleural effusion, left (Acute ~05/10/19) Subjective: Breathing well. No chest pain. Vitals/I&O's: Vital Signs Temp Pulse Resp BP Pulse Ox 36.7 C 131 H 18 123/92 H 96 05/12/19 13:00 05/12/19 15:00 05/12/19 15:00 05/12/19 15:00 05/12/19 15:00 Oxygen Flow Rate (L/min) 2 Oxygen Delivery Method Nasal Cannula Weight: 106.4 kg Body Mass Index (BMI) 41.7 Intake and Output for Last 24 Hours 05/10/19 05/11/19 05/12/19 23:59 23:59 23:59 Intake Total 487.51 / 490.01 1532.50 / 1532.50 700 / 700 Output Total 750 / 750 Balance 487.51 / 490.01 782.50 / 782.50 700 / 700 General: Alert, Cooperative, No apparent distress HEENT: Atraumatic, Normocephalic Oral: Moist Mucosa, No Gingival or Mucosal Lesions/ Ulcerations Neck: No Nodes, Thyroid Normal Size and Texture Lungs: Clear to auscultation, Normal air movement, No rhonchi, No wheeze, No rales Cardiovascular: Regular rate, Regular Rhythm, Normal S1, Normal S2 Abdomen: Bowel Sounds Present, Soft, Non Tender, Non-Distended Extremities: No edema, No Calf Tenderness Psych/Mental Status: Normal Affect, Appropriate Current Medications Acetaminophen (Tylenol) 650 mg PO Q6H PRN PRN PRN Reason: Pain Score 1-3/Temp > 100.7 F Aspirin (Aspirin, Baby) 81 mg PO DAILY@0800 [facility] Last Admin: 05/12/19 08:12 Dose: 81 mg Documented by: Carvedilol (Coreg) 25 mg PO BID [facility] Last Admin: 05/12/19 15:22 Dose: 25 mg Documented by: Dextrose (D50w Syringe) 0 gm IV X1 PRN; Protocol PRN Reason: Hypoglycemia Furosemide (Lasix) 40 mg IV BID@1000,1800 [facility] Last Admin: 05/12/19 09:39 Dose: 40 mg Documented by: Glucagon () 1 mg IM .X1 PRN PRN Reason: Hypoglycemia Heparin Sodium (Beef Lung) (Heparin 500 Unit/5 Ml (100/Ml)) 500 unit IV UD PRN PRN Reason: HEPARIN FLUSH Labetalol HCl (Trandate) 5 mg IV X1 PRN PRN Reason: SBP > 160 prior to sheath pull Stop: 05/14/19 12:41 Losartan Potassium (Cozaar) 100 mg PO DAILY [facility] Last Admin: 05/12/19 09:39 Dose: 100 mg Documented by: Nitroglycerin (Nitrostat) 0.4 mg SUBLINGUAL Q5M PRN PRN Reason: CARDIAC/CHEST PAIN Nutritional Formula (Lactose Free) (Ensure Enlive) 120 ml PO 4X/DAY [facility] Last Admin: 05/12/19 14:56 Dose: Not Given Documented by: Ondansetron HCl (Zofran) 4 mg IV Q8H PRN PRN PRN Reason: NAUSEA/VOMITING Pravastatin Sodium (Pravachol) 20 mg PO QHS [facility] Last Admin: 05/11/19 22:19 Dose: 20 mg Documented by: Sodium Chloride () 5 - 15 ml IV UD PRN PRN Reason: SALINE FLUSH Last Admin: 05/12/19 09:39 Dose: 10 ml Documented by: STROKE Vital Signs/Narrative: Vital Signs Temp Pulse Resp BP Pulse Ox 05/12/19 15:00 131 H 18 123/92 H 96 05/12/19 14:30 112 H 18 137/87 H 95 05/12/19 14:00 108 H 18 123/87 H 95 05/12/19 13:45 117 H 18 102/91 H 95 05/12/19 13:30 111 H 18 110/92 H 96 05/12/19 13:15 114 H 18 109/87 H 93 05/12/19 13:00 36.7 C 103 H 18 101/85 H 92 Medical Necessity - Tobacco Use Smoking Status: Never smoker Tobacco Use: Non-smoker Assessment/Plan All Active Problems (Last Updated 05/12/19 @ 13:06 by Linda Recinos) Non-ischemic cardiomyopathy (Acute) Atrial fibrillation with rapid ventricular response (Acute 05/10/19) Pleural effusion, left (Acute ~05/10/19) Congestive heart failure with LV diastolic dysfunction, NYHA class 2 (Acute) Ventricular tachycardia (Resolved) Shortness of breath (Acute) 1. Afib w RVR currently rate-controlled continue carvedilol 25 BID follow up echo. [id number] score of 4, will need to initiate OACs, but will await results of echo. start NOAC in 3 days, post cath. 2. Acute HFrEF EF 15% LHC showed normal coronaries. unclear type continue IV furosemide on ARB and carvedilol 3. Pleural effusion: 2/2 above diurese 4. VTE prophylaxis: SQ heparin. Code Visit Inpatient E&M: 75692 Subs Hosp L2
[2019-05-12] MEDS: Pravastatin 20 MG Tablet PO (21:09)
[2019-05-13] VITALS (9 sets, daily range): BP systolic 90–112; BP diastolic 56–79; PULSE 75–111; RESP 20–22; TEMP 36.6–36.8; O2SAT 91–95
--- NOTE | 2019-05-13 05:15 | NURSING ---
Assumed care of pt at this time.
[2019-05-13 07:05] LABS: Anion Gap 7 (5-15); BUN 18 mg/dL (7-18); BUN/Creat Ratio 17.5 RATIO (10-20); Calcium,Total 8.6 mg/dL (8.5-10.1); Chloride 100 mmol/L (98-107); Creatinine, Serum 1.03 mg/dL (0.55-1.02); EST Glomerular Filtration Rate 57 mL/min (>60); Est Glom Filt Rate - Afr Amer 69 mL/min (>60); Estimated Creatinine Clearance 43.84 ml/min; Glucose 89 mg/dL (74-106); Potassium 3.1 mmol/L (3.5-5.1); Sodium Level 140 mmol/L (136-145)
[2019-05-13] MEDS: 0.9% NaCl Peripheral Flush Adult/Peds IV (08:43)
[2019-05-13] MEDS: Aspirin 81 MG TAB.CHEW PO (08:43)
[2019-05-13] MEDS: Furosemide 40 MG/4 ML Vial IV (08:43)
[2019-05-13] MEDS: Carvedilol 25 MG Tablet PO (08:43)
[2019-05-13] MEDS: Losartan Potassium 100 MG Tablet PO (08:43)
[2019-05-13 10:16] LABS: Magnesium 1.9 mg/dL (1.6-2.6)
--- NOTE | 2019-05-13 13:35 | PN.CARD_ITS ---
Subjectve: Patient sitting in a chair eating her breakfast without any difficulty. Heart rate is much better controlled. Telemetry shows atrial fibrillation with controlled ventricular response. Objective: Vital Signs Temp Pulse Resp BP Pulse Ox 98.3 F 84 20 H 108/69 92 05/13/19 08:43 05/13/19 08:43 05/13/19 08:43 05/13/19 08:43 05/13/19 08:43 Oxygen Flow Rate (L/min) 2 Oxygen Delivery Method Room Air Weight: 233 lb 14.567 oz Body Mass Index (BMI) 41.7 Intake and Output for Last 24 Hours 05/11/19 05/12/19 05/13/19 23:59 23:59 23:59 Intake Total 1532.50 / 1532.50 1440 / 1440 360 / 360 Output Total 750 / 750 650 / 650 1400 / 1400 Balance 782.50 / 782.50 790 / 790 -1040 / -1040 General: Awake, Alert, Oriented x 3 HEENT: PERRL, EOMI, Sclera Non Icteric Neck: Supple, Good ROM, No Lymph Node Enlargement Lungs: Clear to auscultation Cardiovascular: Irregular Rhythm, Normal S1, Normal S2, No Murmurs, No Rubs, No Gallops Vascular: No Carotid Bruits, Normal Femoral Pulses, Normal Radial Pulses, Normal Dorsalis Pedal Pulse, Normal Posterior Tibial Pulses Abdomen: Bowel Sounds Present, Soft, Non Tender, No HSM, No Organomegaly Extremities: No Cyanosis, No Clubbing, No edema Neurological: No Focal Motor or Sensory Deficit 05/13/19 06:10: Sodium 140, Potassium 3.1 L, Chloride 100, Carbon Dioxide 33.0 H , Anion Gap 7, BUN 18, Creatinine 1.03 H, Est GFR (MDRD) Af Amer 69, Est GFR (MDRD) Non-Af 57 L, BUN/Creatinine Ratio 17.5, Glucose 89, Calcium 8.6 05/13/19 06:10: Magnesium 1.9 Rhythm: EKG: ECHO: Stress Test: Cardiac Cath: PCI: CT Surgery: Holter monitor: EPS: PPM: CXR: Chest CT Scan: Medical Necessity - Tobacco Use Smoking Status: Never smoker Tobacco Use: Non-smoker Assessment/Plan 1. Atrial fibrillation: Patient presents with rapid atrial fibrillation superimposed on acute on chronic congestive heart failure, with minimal nonobstructive coronary disease discovered by repeat catheterization. Her LV function has been confirmed and is 15 to 20%. Recommend discontinuation of her Brilinta, discontinuation of her amlodipine, continuing her Coreg, Lasix, Cozaar and initiating anti-coagulation therapy with either Eliquis or Xarelto in 3 days time allowing for groin to heal. She will require 3 weeks of anticoagulation followed by DC cardioversion. If this is unsuccessful we will add amiodarone repeat cardioversion 1 months time. When she has been converted to normal sinus rhythm we will repeat her echocardiogram 3 months after that to assess if her LV function has improved. The patient will most likely require lifelong anticoagulation given the fact that she is unable to detect her atrial fibrillation. She will follow-up with Dr. Edwards going forward. Discussed with Dr. Mckeon. Thank you very much for the opportunity to participate in the cardiac care of your patient. Patient may be discharged home and follow-up with Dr. Edwards going forward. Code Visit Inpatient E&M: 48484 Subs Hosp L2
--- NOTE | 2019-05-13 13:36 | DCINST_ITS ---
- Discharge Diagnoses Current Active Problems: Current Active and Chronic Problems (Last Updated 05/12/19 @ 13:06 by Linda Recinos) Non-ischemic cardiomyopathy (Acute) Atrial fibrillation with rapid ventricular response (Acute 05/10/19) Pleural effusion, left (Acute ~05/10/19) Obesity (Chronic) You will use the following diet at home:: Cardiac Your food should be the consistency of: Regular Your liquids should be the consistency of: Regular/Thin Discharge Activity: Return to Normal Activity Allergies/Adverse Reactions: Allergies Sulfa (Sulfonamide Antibiotics) Allergy (Verified 05/10/19 16:43) Unknown Medications to take at Discharge Aspirin [Aspirin, Baby] 81 mg PO DAILY@0800 #1 tab.chew 02/02/16 carvedilol 25 mg tablet 25 mg PO BID #60 tab 02/16/18 pravastatin 20 mg tablet 20 mg PO QHS #30 tab 02/16/18 Valsartan 320 mg PO DAILY 05/10/19 Apixaban [Eliquis] 5 mg PO BID #60 tab 05/13/19 Furosemide [Lasix] 40 mg PO DAILY #30 tab 05/13/19 Potassium Chloride [K-Dur] 20 meq PO DAILY #30 tab 05/13/19 The following prescriptions were given: Apixaban [Eliquis] 5 mg PO BID #60 tab [facility]: [facility] Potassium Chloride [K-Dur] 20 meq PO DAILY #30 tab Transmission Status: Received by [address] Furosemide [Lasix] 40 mg PO DAILY #30 tab Transmission Status: Received by [address] Primary Care Physician: Mali Astudillo NP-C [Primary Care Provider] - Please follow up with your Primary Care Physician in: 1-2 weeks Test Results: Test results from this visit will be discussed in further detail at your follow- up appointment, if applicable. Please Follow Up With: Mali Astudillo NP-C Please Follow Up With: Rony Edwards MD When: as directed Proposed Discharge Date: 05/13/19
--- NOTE | 2019-05-13 13:37 | PCM.DC.SUM ---
<Dandre Rowland - Last Filed: 05/13/19 13:50> Discharge Date and Diagnosis - Problem List Patient Problems: Active and Suspected Problems (Last Updated 05/12/19 @ 13:06 by Linda Recinos) Non-ischemic cardiomyopathy (Acute) Atrial fibrillation with rapid ventricular response (Acute 05/10/19) Pleural effusion, left (Acute ~05/10/19) Date of Admission: 05/10/19 Date of Discharge: 05/13/19 - Primary Discharge Diagnosis Active and Suspected Problems (Last Updated 05/12/19 @ 13:06 by Linda Recinos) Acute on chronic systolic CHF with pleural effusions Nonischemic CM Afib RVR CKDIII Morbid obesity - Secondary Discharge Diagnosis Chronic Problems (Last Updated 05/12/19 @ 13:06 by Linda Recinos) Obesity (Chronic) Severe uncontrolled hypertension (Chronic) Hospital Course and Treatment Imaging Results: DIAGNOSTICS: Left heart cath CONCLUSIONS Global LV systolic dysfunction- Severe LVEF: by LV gram 15-20 % Depressed Left Ventricular systolic function - Severe Normal Left Ventricular End Diastolic Pressure Non obstructive coronary arteries RECOMMENDATIONS Management as per referring Sports Equipment Repairer D/madina lara, continue baby asa, start eliqis in 3 days for afib. Restart meds as pt ran out of meds 2 weeks ago. DCCV in 3-4 weeks. Manual sheath removal. f/u with Dr Edwards RAD/Chest PA and Lateral IMPRESSION: Large left pleural effusion with likely associated atelectasis, follow-up recommended to ensure resolution ECHO: Severe segmental systolic dysfunction (see wall motion). The estimated ejection fraction is 15 %. Mildly dilated right ventricle. Mild global right ventricular systolic dysfunction. The left atrium is severely enlarged. The right atrium is severely enlarged. Mild papillary muscle dysfunction of the mitral valve. Mild (1+) mitral valve insufficiency. Moderate (2+) eccentric tricuspid valve insufficiency. Trivial pulmonic valve insufficiency. Echo lucency compatible with a pleural effusion. Right ventricular systolic pressure estimated to be 35 mmHg. Unable to assess diastolic dysfunction due to arrhythmia. RAD/Chest PA and Lateral IMPRESSION: Persistent pleural parenchymal changes at the left lung base. Consults: Jerry - cardio Operations: None Procedures: 2-D Echocardiogram, Cardiac catheterization Summary of Care Provided: Hospital course: The patient is a 68 year old F with past medical history of chronic diastolic congestive heart failure, hypertension, CKD 3, morbid obesity, who presented to the emergency room with complaints of palpitations and shortness of breath over the past 3 weeks. She was hypoxic at 88% on room air, her BNP was elevated at 851, chest x-ray was consistent with congestive heart failure, and she was in A. fib with rapid ventricular response. She had run out of her medications at home and had not been taking them. She was given cardizem in the ER. She was admitted to the PCU and placed on a cardizem drip, and provided IV lasix. Echo was obtained and showed EF15% down from 65% in 2016. Cardiology was consulted and she was taken for a heart cath. This did not show any significant disease. She was transitioned to PO lasix and discharged home in stable condition. She did not require any additional rate limiting medications. She was prescribed eliquis which should be started 3 days after the cath - 05/15/2019. She will need follow up with cardiology as directed and with her PCP in 1-2 weeks. This patient was seen by Dandre Rowland PA-C under the supervision of Doctor Mckeon. [] Patient Problems: Active and Suspected Problems (Last Updated 05/12/19 @ 13:06 by Linda Recinos) Non-ischemic cardiomyopathy (Acute) Atrial fibrillation with rapid ventricular response (Acute 05/10/19) Pleural effusion, left (Acute ~05/10/19) - Physical Exam General: Alert, Oriented x3, Cooperative HEENT: Atraumatic, PERRLA, EOMI, Normocephalic Neck: Supple, No JVD, Negative Carotid Bruits Lungs: Clear to auscultation, Normal air movement, Rales - BL bases Cardiovascular: No murmurs, Irregular Rate Abdomen: Bowel Sounds Present, Soft, Non Tender Extremities: Capillary Refill Less than 3 Seconds, Edema - 1-2+ pitting edema BLLE Skin: No rashes, No breakdown Musculoskeletal: No Tenderness to Palpation of Joints or Extremities Neurological: Cranial nerves II-XII grossly intact Psych/Mental Status: Normal Affect, Appropriate, Alert and oriented to time, place, person, mood and affect Vital Signs Temp Pulse Resp BP Pulse Ox 98.3 F 84 20 H 108/69 92 05/13/19 08:43 05/13/19 08:43 05/13/19 08:43 05/13/19 08:43 05/13/19 08:43 Oxygen Flow Rate (L/min) 2 Oxygen Delivery Method Room Air Weight: 233 lb 14.567 oz Body Mass Index (BMI) 41.7 Intake and Output for Last 24 Hours 05/11/19 05/12/19 05/13/19 23:59 23:59 23:59 Intake Total 1532.50 / 1532.50 1440 / 1440 360 / 360 Output Total 750 / 750 650 / 650 1400 / 1400 Balance 782.50 / 782.50 790 / 790 -1040 / -1040 Laboratory Tests Past 24 Hrs 05/13/19 05/13/19 06:10 06:10 Sodium 140 Potassium 3.1 L Chloride 100 Carbon Dioxide 33.0 H Anion Gap 7 BUN 18 Creatinine 1.03 H Estim Creat Clear Calc 43.84 Est GFR (MDRD) Af Amer 69 Est GFR (MDRD) Non-Af 57 L BUN/Creatinine Ratio 17.5 Glucose 89 Calcium 8.6 Magnesium 1.9 Discharge Diet: Low fat/ Low Cholesterol, 2000 mg Sodium Diet Discharge Activity: Return to Normal Activity Home Medications: Medications to take at Discharge Aspirin [Aspirin, Baby] 81 mg PO DAILY@0800 #1 tab.chew 02/02/16 carvedilol 25 mg tablet 25 mg PO BID #60 tab 02/16/18 pravastatin 20 mg tablet 20 mg PO QHS #30 tab 02/16/18 Valsartan 320 mg PO DAILY 05/10/19 Apixaban [Eliquis] 5 mg PO BID #60 tab 05/13/19 Furosemide [Lasix] 40 mg PO DAILY #30 tab 05/13/19 Potassium Chloride [K-Dur] 20 meq PO DAILY #30 tab 05/13/19 Following Prescrptions Were Given to Patient: Apixaban [Eliquis] 5 mg PO BID #60 tab Transmission Status: Received by [facility] Potassium Chloride [K-Dur] 20 meq PO DAILY #30 tab Transmission Status: Received by [facility] Furosemide [Lasix] 40 mg PO DAILY #30 tab Transmission Status: Received by [facility] Primary Care Physician: Mali Astudillo, FANNIE-C [Primary Care Provider] - Please follow up with your Primary Care Physician in: 1-2 weeks Please Follow Up With: Mali Astudillo, SHREEC Please Follow Up With: Rony Edwards MD When: as directed Disposition: Home Minutes spent on discharge:: 35 Patient Condition:: Stable Medical Necessity - Tobacco Use Smoking Status: Never smoker Tobacco Use: Non-smoker Meaningful Use Info Meaningful Use Diagnoses (Choose all that apply): CHF - CHF FELIPA/ARB ordered at discharge?: Yes Documented LVEF (%): 15 <Weston Mckeon - Last Filed: 05/13/19 14:42> Discharge Date and Diagnosis - Primary Discharge Diagnosis Active and Suspected Problems (Last Updated 05/12/19 @ 13:06 by Linda Recinos) Non-ischemic cardiomyopathy (Acute) Atrial fibrillation with rapid ventricular response (Acute 05/10/19) Pleural effusion, left (Acute ~05/10/19) - Secondary Discharge Diagnosis Chronic Problems (Last Updated 05/12/19 @ 13:06 by Linda Recinos) Obesity (Chronic) Severe uncontrolled hypertension (Chronic) Hospital Course and Treatment Operations: None Procedures: 2-D Echocardiogram, Cardiac catheterization Summary of Care Provided: Patient seen and examined independently. Data reviewed. I agree with the above note by the physician physical therapy assistant instructor. The patient is a 68 year old F presents with palpitations and shortness of breath. A few weeks prior, patient had run out of her medications and did not contact her primary care provider for resumption of the medications. She presented with a H fibrillation with RVR. Was started on rate control medication with diltiazem drip and then became rate controlled and then was continued with carvedilol 25 twice daily. Patient underwent standard work-up that included an echocardiogram that showed an ejection fraction of 15%. Previously in 2016, her EF was 65%. Dr. Edwards, cardiology, was consulted and patient underwent a left heart catheterization that showed normal coronaries and again confirming the low ejection fraction of 15%. Patient was also in heart failure and I was initiated on IV Lasix. Patient will continue with her angiotensin receptor adria. Patient will be started on apixaban but cardiology want to wait 3 days after the heart catheterization before that is initiated so that will be started on the . Spoke with the patient about her low ejection fraction and that she is going to need to have close follow-up to see if she may need a defibrillator which she does not need at this time but if her ejection fraction does not improve in the coming months then that may need to be performed. [] - Physical Exam General: Alert, Cooperative HEENT: Atraumatic, Normocephalic Lungs: Clear to auscultation, Normal air movement, Rales Cardiovascular: Irregular Rate Abdomen: Bowel Sounds Present, Soft, Non Tender Extremities: Capillary Refill Less than 3 Seconds, Edema Skin: No rashes, No breakdown Musculoskeletal: No Tenderness to Palpation of Joints or Extremities Psych/Mental Status: Normal Affect, Appropriate Vital Signs Temp Pulse Resp BP Pulse Ox 36.8 C 84 20 H 108/69 92 05/13/19 08:43 05/13/19 08:43 05/13/19 08:43 05/13/19 08:43 05/13/19 08:43 Oxygen Flow Rate (L/min) 2 Oxygen Delivery Method Room Air Weight: 106.1 kg Body Mass Index (BMI) 41.7 Intake and Output for Last 24 Hours 05/11/19 05/12/19 05/13/19 23:59 23:59 23:59 Intake Total 1532.50 / 1532.50 1440 / 1440 360 / 360 Output Total 750 / 750 650 / 650 1400 / 1400 Balance 782.50 / 782.50 790 / 790 -1040 / -1040 Laboratory Tests Past 24 Hrs 05/13/19 05/13/19 06:10 06:10 Sodium 140 Potassium 3.1 L Chloride 100 Carbon Dioxide 33.0 H Anion Gap 7 BUN 18 Creatinine 1.03 H Estim Creat Clear Calc 43.84 Est GFR (MDRD) Af Amer 69 Est GFR (MDRD) Non-Af 57 L BUN/Creatinine Ratio 17.5 Glucose 89 Calcium 8.6 Magnesium 1.9 Discharge Diet: Low fat/ Low Cholesterol, 2000 mg Sodium Diet Discharge Activity: Return to Normal Activity Disposition: Home Minutes spent on discharge:: 35 Patient Condition:: Stable Medical Necessity - Tobacco Use Smoking Status: Never smoker Meaningful Use Info Meaningful Use Diagnoses (Choose all that apply): CHF - CHF FELIPA/ARB ordered at discharge?: Yes Documented LVEF (%): 15 Code Visit Inpatient E&M: 65649 Disch Hosp
--- NOTE | 2019-05-13 14:32 | CASEMGMT ---
Pt to be sent home on Eliquis at discharge and med e-scribed to [facility] previously. Call to Henrik, pharmacist, and he states that pt's co-pay will be $47.00/month but pt has $150deductible also, so the 1st month total is $197.00. Pt/ voice understanding at this time. Pt provided with 30 day free trial Eliquis card and instruction, voices understanding. Pt/ voice no further questions/concerns/needs at this time. William SMITH CM
--- NOTE | 2019-05-14 17:18 | CASEMGMT ---
LUIS CM Discharge Follow-up Phone Call: GABRIELLE: Darren Strata: 3 Call Date: 05/14/19 Discharge Date: 05/13/19 Time of Call: [id number] Duration: 0 ? Admitting Diagnosis: Acute sys CHF Discharge follow-up call placed to pt. Identified voicemail received and message left requesting a return call if questions or concerns. Torsten Mazariegos RN
== END 2019-05-13 17:47 | disposition home or self-care (01) | DRG 286 ==
LOC: ED 19:59 → PCU 20:30
PROVIDERS: Family Medicine; Physician Assistant; Admitting Provider Internal Medicine; Emergency Provider Emergency Medicine; Family Provider Nurse Practitioner; PCP Nurse Practitioner
DX: I13.0 Hypertensive heart and chronic kidney disease with heart failure and stage 1 through stage 4 chronic kidney disease, or unspecified chronic kidney disease (principal); I50.23 Acute on chronic systolic (congestive) heart failure; Z68.41 Body mass index [BMI] 40.0-44.9, adult; J91.8 Pleural effusion in other conditions classified elsewhere; I48.91 Unspecified atrial fibrillation; N18.3 Chronic kidney disease, stage 3 (moderate); E66.01 Morbid (severe) obesity due to excess calories; R06.89 Other abnormalities of breathing; Z91.14 Patient's other noncompliance with medication regimen; I42.8 Other cardiomyopathies
CPT/HCPCS: 36415; 71046; 80048; 80053; 82962; 83735; 83880; 84484; 85025; 93005; 93306; 93458; 97802; 99152; 99153; 99284; J7040; Q9957; Q9967; A4216; C1769; C1894; J1940

== ENCOUNTER → 2019-05-28 14:49 | Outpatient (CLI) | payer MEDICARE, SELFPAY ==
[2019-05-28 13:13] VITALS: BMI 38.9
[2019-05-28 16:50] LABS: Absolute Lymphocyte Count 1.02 X10^3/uL (0.83-4.51); Absolute Neutrophil Count 5.4 X10^3/uL (2.0-7.7); Basophil# 0.05 X10^3/uL; Basophil% 0.7 % (0-1); Eosinophil# 0.09 X10^3/uL; Eosinophils% 1.3 % (0-5); Hematocrit 43.3 % (37-47); Hemoglobin 13.3 g/dL (12.0-15.0); Lymphocyte # 1.02 X10^3/ul (4.0); Lymphocyte % 14.4 % (19-41); Mean Corp Hgb Conc 30.7 g/dL (32-36); Mean Corpuscular Hgb 26.8 pg (27.0-32.0); Mean Corpuscular Volume 87.1 fL (81-99); Mean Platelet Vol. 10.5 fl (6.2-12.0); Monocyte# 0.53 X10^3/uL; Monocyte% 7.5 % (0-10); NRBC Flagged by Analyzer 0 % (0-5); Neutrophil # 5.35 X10^3/uL (2.7-7.7); Neutrophil % 75.8 % (47-70); Platelet Count 283 K/mm3 (150-450); RBC Distribution Width CV 14.2 % (11.6-14.6); RBC Distribution Width SD 45.2 fl (35.1-43.9); Red Blood Count 4.97 M/mm3 (4.2-5.4); White Blood Count 7.1 K/mm3 (4.4-11.0)
[2019-05-28 17:05] LABS: Anion Gap 9 (5-15); BUN 17 mg/dL (7-18); BUN/Creat Ratio 13.9 RATIO (10-20); Chloride 102 mmol/L (98-107); Creatinine, Serum 1.22 mg/dL (0.55-1.02); EST Glomerular Filtration Rate 47 mL/min (>60); Est Glom Filt Rate - Afr Amer 56 mL/min (>60); Glucose 102 mg/dL (74-106); Potassium 4.3 mmol/L (3.5-5.1); Sodium Level 140 mmol/L (136-145)
== END ==
PROVIDERS: Family Provider Nurse Practitioner; PCP Nurse Practitioner; Referring Provider Physician Assistant Medical; Visit Provider Physician Assistant Medical
DX: I42.8 Other cardiomyopathies (principal); I48.91 Unspecified atrial fibrillation
CPT/HCPCS: 36415; 80048; 85025

== ENCOUNTER → 2019-06-04 10:44 | Outpatient (CLI) | payer MEDICARE, SELFPAY ==
[2019-05-28 13:13] VITALS: BMI 38.9
--- NOTE | 2019-06-04 10:55 | RAD_ITS ---
STUDY: X-RAY CHEST REASON FOR EXAM: Female, 69 years old. Shortness of breath, history of atrial fibrillation. TECHNIQUE: PA and lateral views of the chest. COMPARISON: 05/11/2019. FINDINGS: The right hemithorax is clear. There is a moderate to large left-sided pleural effusion with underlying increased density suggestive of atelectasis or infiltrate. The visualized portion of the remainder of the left mid upper lung field is clear. Difficult to assess cardiac size due to presence of a left-sided effusion. Normal mediastinum and ebony. Normal visualized pulmonary arteries. There is atherosclerotic calcification of the aortic arch with tortuosity. There is demineralization of the osseous structures. There is degenerative osteoarthritis of the bilateral shoulders. There is no demonstrated abnormality of the visualized soft tissue structures of the upper abdomen. RAD/Chest PA and Lateral IMPRESSION: Moderate to large left-sided pleural effusion with underlying atelectasis or infiltrate. Electronically Signed: Sally Romeo MD at 0:40 EST , Service support ,
== END ==
LOC: RAD 10:46
PROVIDERS: Family Provider Nurse Practitioner; PCP Nurse Practitioner; Referring Provider Physician Assistant Medical; Visit Provider Physician Assistant Medical
DX: J90 Pleural effusion, not elsewhere classified (principal)
CPT/HCPCS: 71046

== ENCOUNTER → 2019-06-15 13:16 | Outpatient (CLI) | payer MEDICARE, SELFPAY ==
[2019-06-04 11:43] VITALS: BMI 38.9
--- NOTE | 2019-06-15 | IMM_PTH ---
PATIENT: JOSSELINE SALMON LOC: U#:[id number] AGE/SX: 75/F ROOM: RE06/15/[address]: ANAY Zendejas : 1950 BED: DIS: SPEC #: [id number] RECD: 06/17/19 13:18 STATUS: GEORGE REQ #: [id number] AMY: 06/15/19 00:[address]: Annika Cazares DEPT: IMMUNOHISTOCHEMISTRY RECD BY: Brenda Cano ENTERED: 06/17/19 13:19 SP TYPE: IMMUNO OTHR DR: Mali Astudillo, INSPECTOR WATCH ASSEMBLY-C Tissues: THORACIC FLUID Procedures: Derrick Ret (add) CD20 (add) CD3 (add) CD45 (add) CD5 (add) CD79A (add) CK5-6 (add) MACRO (add) Vimentin (add) Pankeratin (initial) PHYSICIAN & INSTITUTION [place] [id number] SPECIMEN INFORMATION: Tissue Source: Thoracentesis fluid Clinical Info: Left pleural effusion Specimen Number: [id number] CPT code: 27405, 76199 x10 METHODOLOGY: Deparaffinized sections of prefer/formalin-fixed tissue or PAP/DQ stained slides are incubated with monoclonal/polyclonal antibodies/oligonucleotide probes. Localization is made via biotin free immunoperoxidase method. Appropriate controls are performed and reacted as expected. Results on target cell population are indicated in the following table: RESULTS: ANTIBODY / CLONE RESULT AE1-3 (AE1/AE3/PCK26) negative CD3 (PS1) positive CD5 (SP10) positive CD20 (L26) negative CD45 (RP2/18) positive CD79a (11E3) positive, occasional Vimentin (V9) * Macro (HAM-56) * CALRET (polyclonal) * CK5-6 (D5 & 1684) negative *?Immunoreactive in mesothelial cells. These tests were developed and their performance characteristics determined by [facility]. They may not have been cleared or approved by the U.S. Food and Drug Administration. The FDA has determined that such clearance or approval is not necessary. The above immunohistochemical/dualISH markers are ordered and reviewed by the Pathologist. INTERPRETATION: Thoracentesis fluid: Consistent with lymphoid aggregate. AM:dorothy 06/17/19
--- NOTE | 2019-06-15 13:15 | FLU_PTH ---
PATIENT: JOSSELINE SALMON LOC: U#:[id number] AGE/SX: 75/F ROOM: RE06/15/[address]: ANAY Zendejas : 1950 BED: DIS: SPEC #: [id number] RECD: 06/15/19 15:39 STATUS: GEORGE NORMA #: [id number] AMY: 06/15/19 13:[address]: Annika Cazares DEPT: CYTOLOGY RECD BY: Collin Contreras ENTERED: 06/16/19 11:53 SP TYPE: Fluid OTHR DR: Mali Astudillo, UNDERWRITING CONSULTANT-C Tissues: THORACIC FLUID Procedures: Special Stain Group II Surgery Specimen Level IV Cytospin Fluid HEADER OPERATION: Thoracentesis PRE-OP DIAGNOSIS: Left pleural effusion TISSUE SUBMITTED: Thoracentesis fluid for cytology DIAGNOSIS CYTOLOGY Thoracentesis fluid for cytology (cytospin and cell block): Negative for malignant cells. See comment. AM:dorothy 06/17/19 COMMENT The specimen contains reactive mesothelial cells and chronic inflammatory cells. Immunohistochemistry ([id number]) supports the above diagnosis. CYTOLOGY STUDY Slides are reviewed. CYTOLOGY GROSS Received is 110 ml of cloudy red fluid labeled with the patient's name and and designated per the requisition as thoracentesis. Submitted for cytology preparation including cell block. / dorothy 06/16/19 TC:3 CPT: 14811, 31319
--- NOTE | 2019-06-15 13:29 | US_ITS ---
PROCEDURE: ULTRASOUND GUIDED THORACENTESIS. DATE: June 15, 2019. INDICATION: Female, 69 years old. Left pleural effusion PHYSICIAN: Tomer Pirece M.D. PROCEDURE: The risks, benefits, and alternatives to the procedure were explained to the patient. The specific risks of bleeding, infection, and pneumothorax requiring chest tube insertion were discussed and accepted. Written informed consent was obtained. Ultrasonographic evaluation of the left lower pleural space was carried out. An adequate pocket was identified. The patient was placed in the sitting, upright position. The overlying skin was prepped and draped in sterile fashion. 1% lidocaine was administered subcutaneously for local anesthesia. Under ultrasound guidance, a 5 Vietnamese thoracentesis needle/catheter system was advanced into the left posterior lower pleural fluid collection. Approximately 260 mL of bloody fluid was drained. The catheter was removed, and a sterile dressing was applied. A specimen was collected and sent to the laboratory for analysis, as requested by the referring clinician. The patient tolerated the procedure well. A chest x-ray was ordered. US/Thoracentesis W US IMPRESSION: Ultrasound-guided left thoracentesis. Electronically Signed: Tomer Pierce, at 16:00 EST , Service support ,
[2019-06-15 14:53] LABS: International Normalized Ratio 1.1; Prothrombin Time (Protime)PT. 14.3 SECONDS (11.7-14.9)
[2019-06-15 15:04] LABS: ALB/GLOB Ratio 0.8 RATIO (0.9-2.4); Globulin 4.5 g/dL (2.2-4.2); LDH 184 U/L (84-246); Protein, Total 8.3 g/dL (6.4-8.2)
[2019-06-15 15:09] VITALS: BP 139/101; BP 143/95; BP 145/108; BP 153/114; PULSE 106; PULSE 60; PULSE 64; PULSE 76; RESP 16; RESP 18; O2SAT 97; O2SAT 974
--- NOTE | 2019-06-15 15:25 | RAD_ITS ---
STUDY: X-RAY CHEST REASON FOR EXAM: Female, 69 years old. Status post left thoracentesis. TECHNIQUE: AP inspiration and expiration views were obtained. COMPARISON: Comparison is made with prior study dated June 04, 2019. FINDINGS: The patient is status post left thoracentesis. Minimal pleural-parenchymal changes persist at the left lung base. There is no evidence of pneumothorax. Cardiomegaly. RAD/Chest Insp/Exp 2 View IMPRESSION: Status post left thoracentesis. No evidence of pneumothorax. Minimal pleural parenchymal changes are seen at the left lung base. Electronically Signed: Tomer Pierce, at 15:41 EST , Service support ,
[2019-06-15 15:36] LABS: Cytology, Body Fluid / CSF SEE PATHOLOGY REPORT
[2019-06-15 16:00] LABS: Body Fluid Mononuclear WBC # 2.843 10^3/uL; Body Fluid Polynuclear WBC # 0.059 10^3/uL; Body Fluid Total Cells Counted 3.097 10^3/ul; Red Cell Count/Body Fluid 0.055 10^6/ul; White Blood Count/Body Fluid 2.902 10^3/uL
[2019-06-15 16:12] LABS: LDH,Body Fluid 110 Units/l (Not Establ.); Protein, Body Fluid 4.8 g/dL (Not Establ.)
[2019-06-15 17:06] LABS: Appearance/Body Fluid CLOUDY; Auto B Fluid Analyzer BKGD Ct COUNTS W/IN LIMITS (W/IN LIMITS); Color/Body Fluid RED; Lymphocytes 80 %; Macrophages 3 %; Mesothelial Cells 8 %; Monocytes 5 %; Neutrophil (Segs) 4 %; Source- Body Fluid THORACENTESIS
[2019-06-16 11:57] LABS: Pathologist Comment/Body Fluid Reviewed
== END ==
PROVIDERS: Family Provider Nurse Practitioner; PCP Nurse Practitioner; Referring Provider Physician Assistant Medical; Visit Provider Physician Assistant Medical
DX: J90 Pleural effusion, not elsewhere classified (principal); I48.91 Unspecified atrial fibrillation
CPT/HCPCS: 32555; 36415; 71046; 83615; 84156; 84157; 85610; 87070; 87075; 87205; 88108; 88305; 88313; 88341; 88342; 89050

== ENCOUNTER → 2019-07-12 11:54 | Outpatient (CLI) | payer MEDICARE, SELFPAY ==
[2019-07-12 10:31] VITALS: BMI 37.3
--- NOTE | 2019-07-12 12:10 | RAD_ITS ---
STUDY: X-RAY CHEST REASON FOR EXAM: Female, 69 years old. Follow-up pleural effusion. TECHNIQUE: PA and lateral views of the chest. COMPARISON: 06/04/2019. FINDINGS: There is minimal lingular atelectasis, remainder of the lungs are clear and expanded. There has been resolution of previously seen left-sided effusion with no distinct pleural fluid identified on current study. Normal size heart. Normal mediastinum and ebony. Normal visualized pulmonary arteries. There is atherosclerotic calcification of the aortic arch with tortuosity. There is demineralization of the osseous structures. There is degenerative osteoarthritis of the bilateral shoulders. There is no demonstrated abnormality of the visualized soft tissue structures of the upper abdomen. RAD/Chest PA and Lateral IMPRESSION: Minimal lingular atelectasis otherwise no acute cardiopulmonary process seen. No pleural effusion. Electronically Signed: Sally Romeo MD at 0:20 EST , Service support ,
[2019-07-12 13:14] LABS: Anion Gap 6 (5-15); BUN 19 mg/dL (7-18); BUN/Creat Ratio 17.4 RATIO (10-20); Calcium,Total 8.6 mg/dL (8.5-10.1); Chloride 106 mmol/L (98-107); Creatinine, Serum 1.09 mg/dL (0.55-1.02); EST Glomerular Filtration Rate 53 mL/min (>60); Est Glom Filt Rate - Afr Amer 64 mL/min (>60); Glucose 93 mg/dL (74-106); Sodium Level 140 mmol/L (136-145)
== END ==
PROVIDERS: Family Provider Nurse Practitioner; PCP Nurse Practitioner; Referring Provider Physician Assistant Medical; Visit Provider Physician Assistant Medical
DX: I42.8 Other cardiomyopathies (principal); J90 Pleural effusion, not elsewhere classified
CPT/HCPCS: 36415; 71046; 80048

== ENCOUNTER 2019-08-04 11:15 | Day surgery (SDC) | payer MEDICARE, SELFPAY ==
[2019-05-28 13:13] VITALS: BMI 38.9
[2019-07-12 10:31] VITALS: BMI 37.3
[2019-08-03 07:40] VITALS: BMI 37.3
--- NOTE | 2019-08-04 12:22 | CARDIOVERS ---
Cardioversion Cardioversion: Cardioversion summary: The patient is brought to the Chief Executive Or Managing Director in the fasting state, and the risks and benefits of the procedure were thoroughly explained to the patient and informed consent was obtained. The defibrillator pads were placed in the AP position. With the assistance of Dr. Sukh Maxwell, the patient received several incremental doses of etomidate given her severe LV dysfunction of with an EF of 20%. Once adequate sedation was obtained the patient received a single biphasic synchronized 200 J shock which converted her from atrial fibrillation with controlled ventricular response to normal sinus rhythm. This rhythm remained durable, and the patient spontaneously awoke, moves all 4 extremities and tolerated the procedure well. Conclusions: Successful DC cardioversion, converting from atrial fibrillation with controlled ventricular response to normal sinus rhythm with a single biphasic synchronized 200 J shock application. The patient will continue on her current medical therapy, she will see us in the office in 1 week's time for an EKG and a blood pressure check. Should the patient revert back to atrial fibrillation we would consider application of amiodarone for 4 weeks time followed by repeat DC cardioversion. Many thanks Dr. Sukh Maxwell for his assistance.
--- NOTE | 2019-08-04 12:37 | HP.PCM_ITS ---
Problem List (1) Atrial fibrillation with rapid ventricular response Status: Acute (2) Congestive heart failure with LV diastolic dysfunction, NYHA class 2 Status: Acute (3) Non-ischemic cardiomyopathy Status: Acute (4) Pleural effusion, left Status: Acute (5) Shortness of breath Status: Acute (6) Severe uncontrolled hypertension Status: Chronic History and Physical Date of Admission: 08/04/19 [facility] [address] [place] [address] OFFICE VISIT Date of Service: 07/12/19 MR#: [id number] Acct: [id number] Name: JOSSELINE SALMON Rep #: [id number] : 1950 Provider: Annika Cazares Age/Sex: 69/F Location: [facility] [place] Status: Signed HPI [facility] History of Present Illness Details: This is a 69-year-old female that presents here today for a hospital follow-up. She was admitted on May 10, 2019 for acute congestive heart f ailure with atrial fibrillation with RVR. She was also noted to have uncontrolled hypertension. Prior to her hospitalization she states that her symptoms have been ongoing for approximately 3 weeks. She did run out of her medications and had not been monitoring her blood pressure. She noted prior to her hospitalization that she was significantly short of breath, that she was orthopneic and that she had gained approximately 20 pounds and had significant lower extremity edema. During her hospital stay she underwent a heart catheterization which demonstrated no significant coronary artery disease with an ejection fraction of 15%. She was discharged home on her blood pressure medications. She was discharged home on a factor X a inhibitor with plans to proceed with a cardioversion after she had been anticoagulated for 30 days. She was in the process of being scheduled for a cardioversion and was noted to have a recurrence of her moderate left pleural effusion. She did undergo a tho racentesis for this on June 15, 2019. Plans are to proceed with a cardioversion after she has been anticoagulated for 30 days if her pleural effusion has not reaccumulated. Pt sts that since her thoracentesis she feels much better. She is able to walk further than previous. She does not have any orthopnea. She is able to get a higher number on her incentive spirometer. She does not have any edema. She does not have any chest pain. She is not aware of her afib. She does not have any lightheadedness/dizziness. 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 Is patient in pain?: No Allergies Sulfa (Sulfonamide Antibiotics) Allergy (Verified 07/12/19 10:57) Unknown Medications Aspirin [Aspirin, Baby] 81 mg PO DAILY@0800 #1 tab.chew 02/02/16 [Rx Confirmed 07/12/19] pravastatin 20 mg tablet 20 mg PO QHS #30 tab 02/16/18 [Rx Confirmed 07/12/19] Carvedilol [Coreg (Beta Keron)] 25 mg PO BID #60 tab 05/13/19 [Rx Confirmed 07/12/19] diltiazem ER 120 mg capsule,24 hr,extended release 120 mg PO BID #60 cap 06/04/19 [Rx Confirmed 07/12/19] furosemide 40 mg tablet 40 mg PO DAILY #30 tab 06/04/19 [Rx Confirmed 07/12/19] potassium chloride ER 20 mEq tablet,extended release(part/cryst) 20 meq PO DAILY #30 tab 06/04/19 [Rx Confirmed 07/12/19] amiodarone 200 mg tablet 200 mg PO DAILY #30 tab 07/12/19 [Rx Confirmed 07/12/19] apixaban 5 mg tablet 5 mg PO BID #60 tab 07/12/19 [Rx Confirmed 07/12/19] [facility] Medical History Non-ischemic cardiomyopathy (Acute) Atrial fibrillation with rapid ventricular response (Acute 05/10/19) Pleural effusion, left (Acute ~05/10/19) Obesity (Chronic) Severe uncontrolled hypertension (Chronic) Congestive heart failure with LV diastolic dysfunction, NYHA class 2 (Acute) Ventricular tachycardia (Resolved) Surgical History History of left heart catheterization (Resolved 05/12/19) Social History (Updated 07/12/19 @ 13:41 by ANAY Zendejas) Smoking Status: Never smoker ROS Const Const: Negative for fatigue, weakness, fever(s) or headache(s) Eyes Eyes: Negative for blind spots, loss of peripheral vision or transient loss of vision ENT ENT: Negative for headache(s), dizziness, tinnitus or Nosebleed/epistaxis Cardio Chest Pain: No Palpitations: No Edema: None Muscle aches with walking: None Resp Respiratory: Negative for SOB with activity, SOB at rest, SOB orthopnea\SOB l sarah down or Cough GI GI: Negative nausea, vomiting, heartburn or vomiting blood/hematemesis : Negative for hematuria Musc Musc: Negative for muscle aches/ myalgia Neuro Neuro: Negative for dizziness, lightheadedness, near syncope, syncope, orthostatic symptoms, headache(s) or weakness Mati Hematologic/Lymphatic: Negative for easy bleeding Endo Endo: Negative for fatigue Cardiology Exam Const Appearance: cooperative, no acute distress and well developed Orientation: alert, awake and oriented x3 Head Head: normocephalic and atraumatic Mouth: moist mucous membranes Eyes General: appearance normal, both eyes and all related structures Conjunctivae: conjunctivae normal Pupils: PERRL EOM: EOM intact bilaterally Neck Neck: normal visual inspection, no lymphadenopathy and no JVD Carotids: Negative bruit Neck Mass: Negative Neck mass Chest Chest inspection: normal inspection of the chest and symmetric chest movement Auscultation: Bilateral: Clear to Auscultation Cardio Palpation: normal PMI Rate: tachycardic Rhythm: irregularly irregular Heart sounds: S1 normal and S2 normal; negative rub, gallop or murmur GI GI: normal to inspection, soft, no hepatosplenomegaly and bowel sounds present; negative tender Neuro General: alert, awake, oriented x3, CN's II-XI intact bilaterally and moves all extremities Extremities Pulses: Normal: Right Posterior Tibial Pulse, Left Posterior Tibial Pulse, Right Radial Pulse, Left Radial Pulse Lower Extremity Edema: +1: Bilateral Psych Psychological: normal affect Assessment & Plan 1. Atrial fibrillation with rapid ventricular response I48.91 Plan Patient's rate is better controlled however she still is in atrial fibrillation. We will plan on proceeding with a cardioversion. This will be scheduled for early next month. Patient Instructions Your cardioversion is scheduled for 08/04 with an arrival time of 1130 and procedure at 100pm. You will need a double bottom driver. You can not have anything to eat or drink after midnight. In the morning with a small sip of water take Carvedilol, diltiazem, asa, eliquis Orders Orders: 12 Lead EKG performed by BMS Today 2. Non-ischemic cardiomyopathy I42.8 Plan Patient does not have any symptoms of congestive heart failure. She will continue with aggressive medical management. Once she has been cardioverted has been on maximum medical therapy, we will then repeat echocardiogram to reevaluate LV function. If this does not improve over time patient may need to be considered for prophylactic ICD. Orders Orders: Basic Metabolic Profile (BMP) Today Chest PA and Lateral Today 3. Pleural effusion, left J90 Plan Will obtain a chest x-ray to reevaluate. Orders Orders: Basic Metabolic Profile (BMP) Today Chest PA and Lateral Today 4. Hypertension I10 Plan Blood pressure is well controlled on current medications, we do not recommend any changes at this time. Plan Detail Other Medications Refilled: amiodarone 200 mg PO DAILY 30 tabs 11RF apixaban 5 mg PO BID 60 tabs 11RF Additional Comments Thank you for allowing us to participate in patient's plan of care, if you have any questions please do not hesitate to call. This note was generated using a voice recognition system and there may be incorrect words, spelling or punctuation errors that were not noted when reviewing the office note prior to saving. Follow Up 2 Months (MMM) Coding Level of Care Code Off vis,est,level 4 Diagnoses Atrial fibrillation with rapid ventricular response I48.91 Non-ischemic cardiomyopathy I42.8 Pleural effusion, left J90 Hypertension I10 Coding Level of Care Code Off vis,est,level 4 Diagnoses Atrial fibrillation with rapid ventricular response I48.91 Non-ischemic cardiomyopathy I42.8 Pleural effusion, left J90 Hypertension I10 Supplemental Info Supplemental Information Echocardiogram in 04/2019: Severe segmental systolic dysfunction (see wall motion). The estimated ejection fraction is 15 %. Mildly dilated right ventricle. Mild global right ventricular systolic dysfunction. The left atrium is severely enlarged. The right atrium is severely enlarged. Mild papillary muscle dysfunction of the mitral valve. Mild (1+) mitral valve insufficiency. Moderate (2+) eccentric tricuspid valve insufficiency. Trivial pulmonic valve insufficiency. Echo lucency compatible with a pleural effusion. Right ventricular systolic pressure estimated to be 35 mmHg. Unable to assess diastolic dysfunction due to arrhythmia. Cardiac cath 04/2019: DOMINANCE: Right Dominant LEFT HEART ASSESSMENT Left Ventricular Ejection Fraction: by LV Gram 15-20 % Global Hypokinesis - Severe Depressed Left Ventricular systolic function LVEDP: 10 mmHg Normal Left Ventricular End Diastolic Pressure LEFT MAIN: Angiographically normal LEFT ANTERIOR DESCENDING ARTERY: MID LAD: Mild luminal irregularities less than 30% CIRCUMFLEX ARTERY: Angiographically normal RIGHT CORONARY ARTERY: Angiographically normal Diagnostics Electrocardiogram 07/12/19 Chest X-Ray 07/12/19 07/12/19 1342 <Electronically signed by Annika Newton> Date _ [facility] Signature: Date (if applicable) CC: MYRIAM Astudillo ~ The risk/benefits of the procedure were thoroughly explained the patient, and informed consent was obtained. We will proceed with amiodarone assisted DC cardioversion.
--- NOTE | 2019-08-04 14:41 | PRO.PCM_ITS ---
Problem List (1) Atrial fibrillation with rapid ventricular response Status: Acute (2) Congestive heart failure with LV diastolic dysfunction, NYHA class 2 Status: Acute (3) Non-ischemic cardiomyopathy Status: Acute (4) History of cardioversion Status: Chronic (5) Obesity Status: Chronic Qualifiers: Obesity type: unspecified obesity type Serious obesity comorbidity presence: with serious comorbidity Body mass index: BMI 40.0-44.9 (6) Severe uncontrolled hypertension Status: Chronic Procedure Report Date of Procedure: 08/04/19 - Conscious sedation CONSCIOUS SEDATION REPORT BRIEF HISTORY OF PRESENT ILLNESS: The patient is a 69-year-old female who presented to [facility] for an elective outpatient cardioversion due to underlying atrial fibrillation. The patient reports no PO intake since midnight. The patient does not have a history of obstructive sleep apnea. The patient reports no history of smoking and COPD. The patient denies any recent constitutional symptoms such as fevers, chills, nausea or vomiting. The patient denies previous anesthetic complications. Patient's last known ejection fraction was 15%. PHYSICAL EXAMINATION: VITAL SIGNS: Reviewed and were acceptable. GENERAL: The patient is a female, in no apparent distress, speaking in full sentences. HEENT: Normocephalic, atraumatic. Mucous membranes are moist and pink. Good mouth opening, but poor dentition noted. Trachea is midline. Good neck mobility. MP IV CHEST: S1, S2 irregularly irregular. No murmurs, rubs or gallops were noted. LUNGS: Clear to auscultation bilaterally without appreciable wheezes, rales or rhonchi. ABDOMEN: Soft, nontender, nondistended. Positive bowel sounds. EXTREMITIES: There is no clubbing, cyanosis or edema. ASA Class: II DESCRIPTION OF PROCEDURE: After confirmation of informed consent, the patient's anesthesia plan was reviewed in detail. Etomidate was chosen. Risks and benefits were reviewed and the patient agreed to proceed. At 11:57 AM, the patient was given 4 mg of etomidate. The patient required a total of 20 mg of etomidate throughout the procedure to achieve appropriate sedation. The patient achieved an appropriate level of sedation and received 1 attempt synchronized cardioversion, at [address] Edwards at the bedside. This was successful in achieving normal sinus rhythm. The patient was monitored until 12:15 PM, at which time the patient reached their baseline mental status and function. The patient tolerated the procedure well. COMPLICATIONS: None ESTIMATED BLOOD LOSS: None RECOMMENDATIONS: Okay to recover in usual fashion. Code Visit 9xxxx: Other Procedure See Report - 87168 conscious sedation
== END 2019-08-04 13:38 | disposition home or self-care (01) ==
LOC: CLSP 11:16
PROVIDERS: Family Provider Nurse Practitioner; PCP Nurse Practitioner; Referring Provider Internal Medicine Cardiovascular Disease; Visit Provider Internal Medicine Cardiovascular Disease
DX: I48.91 Unspecified atrial fibrillation (principal); I42.8 Other cardiomyopathies; I11.0 Hypertensive heart disease with heart failure; I50.31 Acute diastolic (congestive) heart failure; J90 Pleural effusion, not elsewhere classified; E66.9 Obesity, unspecified; Z68.41 Body mass index [BMI] 40.0-44.9, adult; Z79.82 Long term (current) use of aspirin; Z79.01 Long term (current) use of anticoagulants
CPT/HCPCS: 92960; 93005; J7040

== ENCOUNTER → 2019-10-04 13:47 | Outpatient (CLI) | payer MEDICARE, SELFPAY ==
[2019-09-15 10:21] VITALS: BMI 37.3
== END ==
PROVIDERS: PCP Nurse Practitioner; Referring Provider Nurse Practitioner Family; Visit Provider Nurse Practitioner Family
DX: I50.9 Heart failure, unspecified (principal); I42.8 Other cardiomyopathies; I48.91 Unspecified atrial fibrillation
CPT/HCPCS: 93308; Q9957; A4216; C8924

== ENCOUNTER → 2022-08-27 | Outpatient (CLI) | payer MEDICARE, SELFPAY ==
--- NOTE | 2022-08-27 14:50 | RAD_ITS ---
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 This report was created using [employer] report generation technology. COMPARISON: 07.12.19 FINDINGS: LUNGS AND PLEURAL SPACES: Unremarkable. No consolidation or edema. No pneumothorax. No effusion. HEART: Prominent heart size. MEDIASTINUM: Central airways and mediastinal contour are unremarkable. BONES/JOINTS: There is a compression deformity of the spine at the lower thoracic level. These are age-indeterminate but new since the prior study. MRI could further evaluate if of concern. SOFT TISSUES: Unremarkable. VASCULATURE: There are atherosclerotic vascular calcifications. RAD/Chest PA and Lateral IMPRESSION: There is a compression deformity of the spine at the lower thoracic level. These are age-indeterminate but new since the prior study. MRI could further evaluate if of concern. Electronically Signed: Dany Harvey MD at 16:54 EST ,
[2022-08-27 15:42] LABS: Absolute Lymphocyte Count 1.28 X10^3/uL (0.83-4.51); Absolute Neutrophil Count 5.2 X10^3/uL (2.0-7.7); Basophil# 0.06 X10^3/uL; Basophil% 0.9 % (0-1); Eosinophil# 0.04 X10^3/uL; Eosinophils% 0.6 % (0-5); Hematocrit 42.5 % (37-47); Hemoglobin 13.5 g/dL (12.0-15.0); Lymphocyte # 1.28 X10^3/ul (0.83-4.51); Lymphocyte % 18.3 % (19-41); Mean Corp Hgb Conc 31.8 g/dL (32-36); Mean Corpuscular Hgb 30.1 pg (27.0-32.0); Mean Corpuscular Volume 94.9 fL (81-99); Mean Platelet Vol. 11.2 fl (6.2-12.0); Monocyte# 0.43 X10^3/uL; Monocyte% 6.1 % (0-10); NRBC Flagged by Analyzer 0 % (0-5); Neutrophil # 5.16 X10^3/uL (2.7-7.7); Neutrophil % 73.7 % (47-70); Platelet Count 210 K/mm3 (150-450); RBC Distribution Width CV 13.7 % (11.6-14.6); RBC Distribution Width SD 47.7 fl (35.1-43.9); Red Blood Count 4.48 M/mm3 (4.2-5.4)
[2022-08-27 16:38] LABS: ALB/GLOB Ratio 0.9 RATIO (0.9-2.4); AST(SGOT) 19 U/L (15-37); Alanine Aminotransfer ALT/SGPT 24 U/L (13-56); Albumin, Serum 3.7 g/dL (3.2-5.0); Alkaline Phosphatase 105 U/L (45-117); Anion Gap 8 (5-15); BUN 24 mg/dL (7-18); BUN/Creat Ratio 16.3 RATIO (10-20); Calcium,Total 9.2 mg/dL (8.5-10.1); Chloride 104 mmol/L (98-107); Cholesterol 196 mg/dL (200); Creatinine, Serum 1.47 mg/dL (0.55-1.02); EST Glomerular Filtration Rate 37 mL/min (>60); Est Glom Filt Rate - Afr Amer 45 mL/min (>60); Free T3 2.4 pg/mL (2.18-3.98); Glucose 110 mg/dL (74-106); High Density Lipoprotein 61 mg/dL; Magnesium 2.2 mg/dL (1.6-2.6); Potassium 4.1 mmol/L (3.5-5.1); Protein, Total 7.7 g/dL (6.4-8.2); Sodium Level 143 mmol/L (136-145); T4 Free Direct 1.88 ng/dL (0.76-1.46); Thyroid Stim Hormone (TSH) 2.58 uIU/mL (0.358-3.74); Triglycerides 76 mg/dL; Very Low Density Lipoprotein 15 mg/dL (5-40)
== END | disposition home or self-care (01) ==
PROVIDERS: Referring Provider Nurse Practitioner Gerontology; Visit Provider Nurse Practitioner Gerontology
DX: R06.02 Shortness of breath (principal); I48.91 Unspecified atrial fibrillation; E78.5 Hyperlipidemia, unspecified; Z79.899 Other long term (current) drug therapy
CPT/HCPCS: 36415; 71046; 80053; 80061; 83735; 84439; 84443; 84481; 85025

== ENCOUNTER → 2022-09-03 | Outpatient (CLI) | payer MEDICARE, SELFPAY ==
--- NOTE | 2022-09-05 10:09 | PFT ---
INTRODUCTION: The patient is a 72-year-old female that presents for pulmonary function studies secondary to a diagnosis of amiodarone therapy. Respiratory therapy reported good patient effort. Bronchodilators were used during testing. INTERPRETATION: Forced expiration spirometry demonstrates the presence of a severe large airways obstructive ventilatory defect. There was a significant response to aerosolized bronchodilators. Body plethysmography was performed and revealed a decreased TLC to 3.04 L, 61% of predicted, indicative of a moderate restrictive ventilatory impairment. Diffusing capacity by single breath CO is reduced to 42% of predicted. IMPRESSION: Partially reversible severe mixed ventilatory defect with symmetric reduction in diffusing capacity.
== END | disposition home or self-care (01) ==
LOC: PSN 11:53
PROVIDERS: PCP Nurse Practitioner Family; Visit Provider Nurse Practitioner Gerontology
DX: Z79.899 Other long term (current) drug therapy (principal)
CPT/HCPCS: 94060; 94726; 94729

== ENCOUNTER → 2022-11-26 | Outpatient (CLI) | payer MEDICARE, SELFPAY ==
[2022-11-26 13:44] LABS: Anion Gap 1 (5-15); BUN 21 mg/dL (7-18); BUN/Creat Ratio 18.6 RATIO (10-20); Chloride 107 mmol/L (98-107); Creatinine, Serum 1.13 mg/dL (0.55-1.02); EST Glomerular Filtration Rate 50 mL/min (>60); Est Glom Filt Rate - Afr Amer 61 mL/min (>60); Glucose 108 mg/dL (74-106); Potassium 4.8 mmol/L (3.5-5.1); Sodium Level 139 mmol/L (136-145)
== END | disposition home or self-care (01) ==
LOC: LAB 13:03
PROVIDERS: PCP Nurse Practitioner Family; Referring Provider Internal Medicine Cardiovascular Disease; Visit Provider Internal Medicine Cardiovascular Disease
DX: I42.8 Other cardiomyopathies (principal); I48.0 Paroxysmal atrial fibrillation
CPT/HCPCS: 36415; 80048

== ENCOUNTER → 2022-12-06 | Outpatient (CLI) | payer MEDICARE, SELFPAY ==
--- NOTE | 2022-12-06 12:48 | ECHOD_ITS ---
Reason For Study: NON ISCHEMIC CARDIOMYOPATHY Procedure This was a 2D Doppler, Color Flow transthoracic echocardiogram. Exam performed in department. Left Ventricle Normal LV size. Left ventricular systolic function is normal. The estimated ejection fraction is 55 %. Normal diastology for age. No regional wall motion abnormalities noted. Right Ventricle Normal RV size. Normal systolic function. Atria Normal left atrium. Normal right atrium. Mitral Valve Bileaflet diffuse mitral valve thickening. Mild (1+) eccentric mitral valve insufficiency. Tricuspid Valve Normal tricuspid valve. Mild (1+) tricuspid valve insufficiency. Pulmonary artery systolic pressure is 46 mmHg. Aortic Valve Trisinus/trileaflet aortic valve. Pulmonic Valve Normal pulmonic valve. Mild (1+) pulmonic valve insufficiency. Great Vessels Normal aortic root. The pulmonary artery is normal size. Normal inferior vena cava. Pericardium/Pleural No pericardial effusion. MMode/2D Measurements & Calculations LVIDd: 5.8 cm IVSd: 0.86 cm Ao root diam: 3.6 cm LVIDs: 4.1 cm LVPWd: 0.99 cm RVDd: 3.9 cm FS: 28.9 % LAV(MOD-bp): 62.4 ml LVAd ap4: 37.2 cm2 SV(MOD-sp4): 90.6 ml LAV(MOD-bp) Indexed: 32.1 ml/m2 LVLd ap4: 7.7 cm LAV(MOD-sp2): 62.3 ml EDV(MOD-sp4): 145.8 ml LAV(MOD-sp4): 59.7 ml EDV(sp4-el): 152.4 ml LVAs ap4: 21.2 cm2 LVLs ap4: 6.6 cm ESV(MOD-sp4): 55.2 ml ESV(sp4-el): 57.6 ml EF(MOD-sp4): 62.1 % EF(sp4-el): 62.2 % SV(sp4-el): 94.8 ml LA A4 area: 20.9 cm2 LA dimension(2D): 4.9 cm RA A4 area: 15.5 cm2 Time Measurements MV dec time: 0.18 sec Doppler Measurements & Calculations MV E max earl: 89.5 cm/sec Lat Peak E' Earl: 8.0 cm/sec Med Peak E' Earl: 7.9 cm/sec MV A max earl: 44.0 cm/sec E/E' lat: 11.2 E/E' med: 11.3 MV E/A: 2.0 Ao V2 max: 148.1 cm/sec LV V1 max: 111.7 cm/sec PA V2 max: 103.6 cm/sec Ao max P.8 mmHg LV V1 max P.0 mmHg TR max earl: 324.2 cm/sec TR max P.1 mmHg ECHO/Echo Complete Interpretation Summary Normal LV size. Left ventricular systolic function is normal. The estimated ejection fraction is 55 %. Pulmonary artery systolic pressure is 46 mmHg. Normal diastology for age. Ordering Physician: Tasha Cunningham/PAMELA Referring Physician: JOSE BUSBY Performed By: Rianna Moore RDCS
== END | disposition home or self-care (01) ==
LOC: CVS 12:46
PROVIDERS: PCP Nurse Practitioner Family; Referring Provider Nurse Practitioner Gerontology; Visit Provider Nurse Practitioner Gerontology
DX: R00.1 Bradycardia, unspecified (principal); I42.8 Other cardiomyopathies; I48.91 Unspecified atrial fibrillation
CPT/HCPCS: 93225; 93226; 93306

== ENCOUNTER → 2024-05-03 | Outpatient (CLI) | payer MEDICARE, SELFPAY ==
[2024-05-03 11:50] LABS: ALB/GLOB Ratio 0.9 RATIO (0.9-2.4); AST(SGOT) 16 U/L (15-37); Alanine Aminotransfer ALT/SGPT 14 U/L (13-56); Albumin, Serum 3.5 g/dL (3.2-5.0); Alkaline Phosphatase 104 U/L (45-117); Anion Gap 4 (5-15); BUN 25 mg/dL (7-18); BUN/Creat Ratio 21.4 RATIO (10-20); Calcium,Total 9.1 mg/dL (8.5-10.1); Chloride 106 mmol/L (98-107); Cholesterol 193 mg/dL (200); Creatinine, Serum 1.17 mg/dL (0.55-1.02); EST Glomerular Filtration Rate 48 mL/min (>60); Est Glom Filt Rate - Afr Amer 58 mL/min (>60); Globulin 3.9 g/dL (2.2-4.2); Glucose 99 mg/dL (74-106); High Density Lipoprotein 65 mg/dL; Potassium 4.3 mmol/L (3.5-5.1); Protein, Total 7.4 g/dL (6.4-8.2); Sodium Level 139 mmol/L (136-145); Triglycerides 78 mg/dL; Very Low Density Lipoprotein 16 mg/dL (5-40)
== END | disposition home or self-care (01) ==
LOC: LAB 10:40
PROVIDERS: PCP Nurse Practitioner Family; Referring Provider Internal Medicine Cardiovascular Disease; Visit Provider Internal Medicine Cardiovascular Disease
DX: I10 Essential (primary) hypertension (principal); E78.5 Hyperlipidemia, unspecified; E66.9 Obesity, unspecified; R06.02 Shortness of breath; I25.10 Atherosclerotic heart disease of native coronary artery without angina pectoris
CPT/HCPCS: 36415; 80053; 80061; 84443

== ENCOUNTER → 2024-06-23 | Outpatient (CLI) | payer MEDICARE, SELFPAY ==
[2024-06-23 14:51] LABS: T4 Free Direct 1.19 ng/dL (0.76-1.46)
== END | disposition home or self-care (01) ==
LOC: LAB 13:39
PROVIDERS: PCP Nurse Practitioner Family; Referring Provider Nurse Practitioner Gerontology; Visit Provider Nurse Practitioner Gerontology
DX: Z79.899 Other long term (current) drug therapy (principal)
CPT/HCPCS: 36415; 84439; 84443; 84481